=== PATIENT | female | born 1995 | race Caucasian/White ===

== ENCOUNTER 2017-01-14 20:22 | Emergency (ER) | payer SELFPAY ==
[2017-01-14] MEDS ORDERED: BABY ASPIRIN 81 MG CHEW PO ONE (20:41)
[2017-01-14] MEDS ORDERED: Sodium Chloride 0.9% 1000 ML 1,000 ML IV SCH (20:45)
[2017-01-14 20:50] LABS: BASOPHIL % 0.3 % (0.0-0.4); Eosinophil % 2.6 % (0.00-5.0); Granulocytes % 46.7 % (36.0-66.0); Lymphocytes % 44.8 % (24.0-44.0); Mean Cell Volume 79.9 fl (78-100); Mean Corpuscular Hemoglobin 26.2 pg (26-32); Mean Platelet Volume 10.6 fl (6-9.5); Monocytes % 5.6 % (0.0-12.0); Platelet Count 219 K/mm3 (150-450); Red Blood Count 5.03 M/mm3 (4.1-5.4); Red Cell Distribution Width 21.4 % (11.5-14.0); White Blood Count 6.5 K/mm3 (4.0-10.5)
[2017-01-14] MEDS ORDERED: BABY ASPIRIN 81 MG CHEW ONE (20:51)
[2017-01-14] MEDS ORDERED: Sodium Chloride 0.9% 1000 ML 1,000 ML ONE (20:51)
[2017-01-14 20:58] LABS: INR 1.09 (0.8-3.0); PROTIME 12.2 SECONDS (9.95-12.35)
[2017-01-14 21:06] LABS: ALBUMIN 4.1 g/dL (3.4-5.0); ALKALINE PHOSPHATASE 49 U/L (46-116); BILIRUBIN,TOTAL 0.7 mg/dL (0.2-1.0); BLOOD UREA NITROGEN 10 mg/dL (9-20); CHLORIDE 107 mEq/L (98-107); Carbon Dioxide 25.4 mEq/L (21-32); Glucose 86 MG/DL (70-110); Potassium 3.8 mEq/L (3.5-5.1); SGOT/AST 18 U/L (15-37); SGPT/ALT 14 U/L (12-78); SODIUM 143 mEq/L (136-145); Total Protein 7.3 gm/dL (6.4-8.2)
[2017-01-14] MEDS ORDERED: TORAdol 30 mg Injection IV ONE (21:54)
[2017-01-14 21:58] VITALS: O2SAT 98
[2017-01-14] MEDS ORDERED: TORAdol 30 mg Injection ONE (22:02)
[2017-01-14] MEDS ORDERED: Sodium Chloride 0.9% 1000 ML 1,000 ML IV STA (22:09)
[2017-01-14] MEDS ORDERED: Zithromax 250 MG TABLET PO ONE (22:17)
[2017-01-14] MEDS ORDERED: Tylenol #3 Tablet PO ONE (22:18)
[2017-01-14] MEDS ORDERED: Zithromax 250 MG TABLET ONE (22:21)
[2017-01-14] MEDS ORDERED: Tylenol #3 Tablet ONE (22:21)
--- NOTE | 2017-01-14 22:38 | ERPHSYRPT ---
- History of Present Illness Time Seen by Provider: 01/14/17 20:40 Historian: patient Exam Limitations: clinical condition Patient Subjective Stated Complaint: PT REPORTS CHEST PAIN BEGINNING EARLY THIS AFTERNOON-STATES THAT PAIN HAS NOT CHANGED-DENIES SOB-DENEIS RECENT COUGH- DENIES DIAPHOESIS Triage Nursing Assessment: PT PINK WARM ET [id number] ALL QUESTIONS CORRECTLY-RESP EASY ET NONLABORED-ABLE TO SPEAK IN COMPLETE SENTCES WITH EASE- RIGHT RADIAL PULSE REGUARL ET STRONG Physician History: PATIENT COMPLAINS OF ANTERIOR CHEST PAINS SHARP IN CHARACTER, EXACERBATED UPON INSPIRATION AND MOTION OF TORSO. DENIES RADIATION OF PAIN, DYSPNEA, DIAPHORESIS OR PALPITATIONS. HAS PRODUCTIVE COUGH YELLOW SPUTUM. Timing/Duration: today Activities at Onset: none Quality: sharpness, stabbing Location: substernal Chest Pain Radiation: no radiation Severity of Pain-Max: moderate Severity of Pain-Current: moderate Modifying Factors: Improves With: change in position Associated Symptoms: hurts to breathe Prior Chest Pain/Cardiac Workup: no prior chest pain Nitro Today/Relief: 0.4 mg x 1, provided by ED Aspirin Treatment Today: 81 mg x 4, provided by ED Allergies/Adverse Reactions: No Known Drug Allergies Allergy (Unverified 01/14/17 20:36) Home Medications: Iron 18 mg PO DAILY 01/14/17 [History] Hx Tetanus, Diphtheria Vaccination/Date Given: Yes Hx Influenza Vaccination/Date Given: No Hx Pneumococcal Vaccination/Date Given: No Immunizations Up to Date: Yes - Review of Systems Constitutional: No Fever, No Chills Eyes: No Symptoms Ears, Nose, & Throat: No Symptoms Respiratory: No Symptoms, Cough, No Dyspnea Cardiac: Chest Pain, No Edema, No Syncope Abdominal/Gastrointestinal: No Symptoms, No Abdominal Pain, No Nausea, No Vomiting, No Diarrhea Genitourinary Symptoms: No Symptoms, No Dysuria Musculoskeletal: No Symptoms, No Back Pain, No Neck Pain Skin: No Symptoms, No Rash Neurological: No Symptoms, No Dizziness, No Focal Weakness, No Sensory Changes Psychological: No Symptoms Endocrine: No Symptoms All Other Systems: Reviewed and Negative - Past Medical History Pertinent Past Medical History: No - Past Surgical History Past Surgical History: No - Social History Smoking Status: Current every day smoker How long have you smoked: YRS Exposure to second hand smoke: Yes Drug Use: none Patient Lives Alone: No - Female History Hx Last Menstrual Period: 2 WKS AGO - Nursing Vital Signs Temperature: 98.2 F Temperature Source: Oral Pulse Rate: 74 Respiratory Rate: 14 Pain Intensity: 4 - Physical Exam General Appearance: no apparent distress, alert Eye Exam: PERRL/EOMI, eyes nml inspection Ears, Nose, Throat Exam: normal ENT inspection, moist mucous membranes Neck Exam: normal inspection, non-tender, supple, full range of motion Respiratory Exam: normal breath sounds, chest tenderness (PARASTERNAL CHEST WALL TENDERNESS T-2 TO T-5), lungs clear, No respiratory distress Cardiovascular Exam: regular rate/rhythm, normal heart sounds Gastrointestinal/Abdomen Exam: soft, No tenderness, No mass Back Exam: normal inspection, No CVA tenderness, No vertebral tenderness Extremity Exam: normal inspection, normal range of motion Neurologic Exam: alert, oriented x 3, cooperative, normal mood/affect, sensation nml, No motor deficits Skin Exam: normal color, warm, dry SpO2 Interpretation: normal SpO2: 98 Oxygen Delivery: Nasal Cannula - Course EKG Interpreted by Me: RATE, Sinus Rhythm, Sinus Todd, Right Caret Deviation - Radiology Exams Chest X-ray Interpretation: Interpreted by me, Negative, No Infiltrates Ordered Tests: Active Orders 24 hr Category Date Time Status Sales Promotion Coordinator STAT Care 01/14/17 20:41 Active EKG-ER Only STAT Care 01/14/17 20:41 Active IV Insertion STAT Care 01/14/17 20:41 Active Oxygen-ED Only NASAL CANNULA 2 lpm Care 01/14/17 20:41 Active CHEST 1 VIEW (PORTABLE) Stat Exams 01/14/17 20:42 Taken CBC W DIFF Stat Lab 01/14/17 20:40 Completed CMP Stat Lab 01/14/17 20:40 Completed D-DIMER QUANTITATION Stat Lab 01/14/17 20:40 Completed HCG,QUALITATIVE URINE Stat Lab 01/14/17 21:30 Completed PROTIME WITH INR Stat Lab 01/14/17 20:40 Completed TROPONIN Q3H Lab 01/14/17 20:40 Completed TROPONIN Q3H Lab 01/14/17 23:45 Ordered TROPONIN Q3H Lab 01/15/17 02:45 Ordered TROPONIN Q3H Lab 01/15/17 05:45 Ordered TROPONIN Q3H Lab 01/15/17 08:45 Ordered Urine Triage Profile Stat Lab 01/14/17 21:30 Completed Medication Summary Generic Name Dose Route Start Last Admin Trade Name Freq PRN Reason Stop Dose Admin Sodium Chloride 1,000 mls @ 100 mls/hr 01/14/17 20:45 01/14/17 20:55 Sodium Chloride 0.9% 1000 Ml IV 02/13/17 20:44 100 mls/hr .Q10H SIA Administration Sodium Chloride 1,000 mls @ 999 mls/hr 01/14/17 22:09 01/14/17 21:20 Sodium Chloride 0.9% 1000 Ml IV 01/14/17 23:09 999 mls/hr .Q1H1M STA Administration Discontinued Medications Generic Name Dose Route Start Last Admin Trade Name Joey PRN Reason Stop Dose Admin Acetaminophen/Codeine Phosphate 2 tab 01/14/17 22:18 01/14/17 22:24 Tylenol #3 Tablet PO 01/14/17 22:19 2 tab STAT ONE Administration Acetaminophen/Codeine Phosphate Confirm 01/14/17 22:21 Tylenol #3 Tablet Administered 01/14/17 22:22 Dose 2 tab .ROUTE .STK-MED ONE Aspirin 324 mg 01/14/17 20:41 01/14/17 20:55 Baby Aspirin 81 Mg Chew PO 01/14/17 20:42 324 mg STAT ONE Administration Aspirin Confirm 01/14/17 20:51 Baby Aspirin 81 Mg Chew Administered 01/14/17 20:52 Dose 324 mg .ROUTE .STK-MED ONE Azithromycin 500 mg 01/14/17 22:17 01/14/17 22:24 Zithromax 250 Mg Tablet PO 01/14/17 22:18 500 mg STAT ONE Administration Azithromycin Confirm 01/14/17 22:21 Zithromax 250 Mg Tablet Administered 01/14/17 22:22 Dose 500 mg .ROUTE .STK-MED ONE Ketorolac Tromethamine 30 mg 01/14/17 21:54 01/14/17 22:04 Toradol 30 Mg Injection IV 01/14/17 21:55 30 mg STAT ONE Administration Ketorolac Tromethamine Confirm 01/14/17 22:02 Toradol 30 Mg Injection Administered 01/14/17 22:03 Dose 30 mg .ROUTE .STK-MED ONE Lab/Rad Data: Laboratory Result Diagrams 01/14/17 20:40 01/14/17 20:40 Laboratory Results 01/14/17 01/14/17 01/14/17 Range/Units 21:30 21:30 20:40 WBC (4.0-10.5) K/mm3 RBC (4.1-5.4) M/mm3 Hgb (12.0-16.0) gm/dl Hct (35-47) % MCV (78-100) fl MCH (26-32) pg MCHC (32-36) g/dl RDW (11.5-14.0) % Plt Count (150-450) K/mm3 MPV (6-9.5) fl Gran % (36.0-66.0) % Lymphocytes % (24.0-44.0) % Monocytes % (0.0-12.0) % Eosinophils % (0.00-5.0) % Basophils % (0.0-0.4) % Basophils # (0-0.4) INR (0.8-3.0) D-Dimer (0.00-0.49) mg/L Sodium (136-145) mEq/L Potassium (3.5-5.1) mEq/L Chloride (98-107) mEq/L Carbon Dioxide (21-32) mEq/L Anion Gap (5-15) MEQ/L BUN (9-20) mg/dL Creatinine (0.55-1.30) mg/dl Estimated GFR ML/MIN Glucose (70-110) MG/DL Calcium (8.5-10.1) mg/dL Total Bilirubin (0.2-1.0) mg/dL AST (15-37) U/L ALT (12-78) U/L Alkaline Phosphatase (46-116) U/L Troponin I < 0.017 (0.000-0.056) ng/ml Serum Total Protein (6.4-8.2) gm/dL Albumin (3.4-5.0) g/dL Urine HCG, Qual NEGATIVE (Negative) Urine Opiates Level NEG. (NEGATIVE) Ur Methadone NEG. (NEGATIVE) Urine Barbiturates NEG. (NEGATIVE) Ur Phencyclidine (PCP) NEG. (NEGATIVE) Urine Amphetamine NEG. (NEGATIVE) U Benzodiazepine Level NEG. (NEGATIVE) Urine Cocaine NEG. (NEGATIVE) Urine Marijuana (THC) NEG. (NEGATIVE) 0501/14/17 01/14/17 Range/Units 20:40 20:40 20:40 WBC 6.5 (4.0-10.5) K/mm3 RBC 5.03 (4.1-5.4) M/mm3 Hgb 13.2 (12.0-16.0) gm/dl Hct 40.2 (35-47) % MCV 79.9 (78-100) fl MCH 26.2 (26-32) pg MCHC 32.8 (32-36) g/dl RDW 21.4 H (11.5-14.0) % Plt Count 219 (150-450) K/mm3 MPV 10.6 H (6-9.5) fl Gran % 46.7 (36.0-66.0) % Lymphocytes % 44.8 H (24.0-44.0) % Monocytes % 5.6 (0.0-12.0) % Eosinophils % 2.6 (0.00-5.0) % Basophils % 0.3 (0.0-0.4) % Basophils # 0.02 (0-0.4) INR 1.09 (0.8-3.0) D-Dimer 0.257 (0.00-0.49) mg/L Sodium 143 (136-145) mEq/L Potassium 3.8 (3.5-5.1) mEq/L Chloride 107 (98-107) mEq/L Carbon Dioxide 25.4 (21-32) mEq/L Anion Gap 14.0 (5-15) MEQ/L BUN 10 (9-20) mg/dL Creatinine 0.98 (0.55-1.30) mg/dl Estimated GFR > 60 ML/MIN Glucose 86 (70-110) MG/DL Calcium 9.6 (8.5-10.1) mg/dL Total Bilirubin 0.7 (0.2-1.0) mg/dL AST 18 (15-37) U/L ALT 14 (12-78) U/L Alkaline Phosphatase 49 (46-116) U/L Troponin I (0.000-0.056) ng/ml Serum Total Protein 7.3 (6.4-8.2) gm/dL Albumin 4.1 (3.4-5.0) g/dL Urine HCG, Qual (Negative) Urine Opiates Level (NEGATIVE) Ur Methadone (NEGATIVE) Urine Barbiturates (NEGATIVE) Ur Phencyclidine (PCP) (NEGATIVE) Urine Amphetamine (NEGATIVE) U Benzodiazepine Level (NEGATIVE) Urine Cocaine (NEGATIVE) Urine Marijuana (THC) (NEGATIVE) - Progress Progress: improved Progress Note: 01/14/17 22:22 PATIENT ADMINISTERED BABY ASA X 4, NTG 0.4MG SL, TORADOL 30MG IV, Counseled pt/family regarding: lab results, diagnosis, need for follow-up, rad results - Departure Time of Disposition: 23:00 Departure Disposition: Home Clinical Impression: COSTOCHONDRIS, BRONCHITIS Condition: Stable Critical Care Time: No Referrals: Provider,Unknown [Primary Care Provider] - Additional Instructions: ANTIBIOTIC ZITHROMAX 250MG, 2 TABLETS DAY 1, THEN 1 TABLET DAILY FOR 4 DAYS. FOLLOWUP WITH YOUR CARDIOLOGY CONSULT THIS WEEK. TYLENOL #3 EVERY 4 HOURS FOR PAIN NEEDED. Prescriptions: Codeine Phosphate/APAP #3 [Tylenol #3 Tablet] 1 tab PO Q4HPRN PRN #10 tablet PRN Reason: Pain Azithromycin 250 mg [Zithromax 250 MG TABLET] 250 mg PO ZPACK #6 tablet
[2017-01-14 22:49] VITALS: BP 108/60
[2017-01-14 22:53] VITALS: PULSE 74
--- NOTE | 2017-01-15 09:04 | XRAY ---
Indication: Chest pain. Comparison: None Portable chest demonstrates normal heart, lungs, and bony thorax.
== END 2017-01-14 23:07 | disposition home or self-care (01) ==
LOC: ED 20:22
DX: M94.0 Chondrocostal junction syndrome [Tietze] (principal); J40 Bronchitis, not specified as acute or chronic; R07.89 Other chest pain
CPT/HCPCS: 36000; 36415; 71010; 80053; 80307; 84484; 84703; 85025; 85379; 85610; 93005; 93041; 96360; 96374; 99283; J1885; A9270-GY

== ENCOUNTER 2017-10-16 00:52 | Emergency (ER) | payer OTHER ==
[2017-10-16] MEDS ORDERED: TORAdol 30 mg Injection IM ONE (01:11)
[2017-10-16] MEDS ORDERED: TORAdol 30 mg Injection ONE (01:17)
--- NOTE | 2017-10-16 01:20 | ERPHSYRPT ---
- History of Present Illness Time Seen by Provider: 10/16/17 01:14 Source: patient Exam Limitations: no limitations Patient Subjective Stated Complaint: pt states that while at work, they were moving stock, her lt foot was run over by a pallett. Triage Nursing Assessment: pt alert and oriented, answers questions appop. pt transfer from wheelchair to stretcher per self, nwb to lt leg. respirations nonlabored with lungs cta. bruising noted to lt great toes, tenderness to lt foot. Physician History: This is a 22-year-old white female arrives with complaint of pain in her left foot after running the foot over with a pallet joseph at work at approximately 11: 15 this evening. Patient complains of pain on her left foot both proximally and proximal to her left first second third toes. Past medical history is negative. Patient states that her last menstrual period was March 12 surgery September 12 she states she is on the Depo-Provera shots Social history positive for tobacco use. Method of Injury: other (left foot run over by pallet joseph) Occurred: this evening (11:15 this evening) Quality: aching, throbbing Lower Extremities Pain: foot: left Modifying Factors: Improves With: nothing Associated Symptoms: none Allergies/Adverse Reactions: No Known Drug Allergies Allergy (Verified 10/16/17 01:08) Home Medications: Amoxicillin 500 mg Cap [Amoxil 500 mg] 500 mg PO TID 10/16/17 [History] Hx Tetanus, Diphtheria Vaccination/Date Given: Yes Hx Influenza Vaccination/Date Given: No Hx Pneumococcal Vaccination/Date Given: No Immunizations Up to Date: Yes - Review of Systems Constitutional: No Symptoms Eyes: No Symptoms Ears, Nose, & Throat: No Symptoms Respiratory: No Cough, No Dyspnea Cardiac: No Chest Pain, No Edema, No Syncope Abdominal/Gastrointestinal: No Abdominal Pain, No Nausea, No Vomiting, No Diarrhea Genitourinary Symptoms: No Dysuria Musculoskeletal: Other (left foot pain) Skin: No Rash Neurological: No Dizziness, No Focal Weakness, No Sensory Changes Psychological: No Symptoms Endocrine: No Symptoms All Other Systems: Reviewed and Negative - Past Medical History Pertinent Past Medical History: No - Past Surgical History Past Surgical History: No - Social History Smoking Status: Current every day smoker How long have you smoked: YRS Exposure to second hand smoke: Yes Drug Use: none Patient Lives Alone: No - Female History Hx Last Menstrual Period: sep 12 Hx Now: No - Nursing Vital Signs Nursing Vital Signs: Initial Vital Signs Temperature 98.4 F 10/16/17 00:59 Pulse Rate 78 10/16/17 00:59 Respiratory Rate 18 10/16/17 00:59 Blood Pressure 119/86 10/16/17 00:59 O2 Sat by Pulse Oximetry 98 10/16/17 00:59 Pain Scale Pain Intensity 7 - Physical Exam General Appearance: mild distress Eyes, Ears, Nose, Throat Exam: moist mucous membranes Neck Exam: non-tender, supple Cardiovascular/Respiratory Exam: chest non-tender, normal breath sounds, regular rate/rhythm, no respiratory distress Gastrointestinal/Abdominal Exam: non-tender, guarding Hips Exam: bilateral: non-tender, normal inspection, normal range of motion, no evidence of injury Legs Exam: bilateral leg: non-tender, normal inspection, normal range of motion , no evidence of injury Knees Exam: bilateral knee: non-tender, normal inspection, normal range of motion, no evidence of injury Ankle Exam: bilateral ankle: non-tender, normal inspection, normal range of motion, no evidence of injury Foot Exam: right foot: non-tender, normal inspection, normal range of motion, no evidence of injury, left foot: other (left plate drying machine tender with palpation dorsally, decreased range of motion left toe secondary to pain. Left dorsal pedal posterior tibial pulses intact 2 over 4, good capillary refill all toes sensation intact to all toes) DTR - Lower Extremities Exam: ankle (R): 2+, ankle (L): 2+ Neuro/Tendon Exam: normal sensation, normal motor functions Mental Status Exam: alert, oriented x 3, cooperative Skin Exam: normal color, warm, dry SpO2 Interpretation: normal (98%) SpO2: 98 Oxygen Delivery: Room Air - Course Nursing assessment & vital signs reviewed: Yes - Radiology Exams Left Foot X-ray Interpretation: Interpreted by me, Negative, No Fracture, No Subluxation Ordered Tests: Active Orders 24 hr Category Date Time Status Fred Bandage Application -[facility] STAT Care 10/16/17 01:48 Active Crutches STAT Care 10/16/17 01:51 Active Splint STAT Care 10/16/17 01:48 Active FOOT (MINIMUM 3 VIEWS) Stat Exams 10/16/17 01:11 Taken Medication Summary Discontinued Medications Generic Name Dose Route Start Last Admin Trade Name Joey PRN Reason Stop Dose Admin Ketorolac Tromethamine 60 mg 10/16/17 01:11 10/16/17 01:18 Toradol 30 Mg Injection IM 10/16/17 01:12 60 mg STAT ONE Administration Ketorolac Tromethamine Confirm 10/16/17 01:17 Toradol 30 Mg Injection Administered 10/16/17 01:18 Dose 60 mg .ROUTE .STK-MED ONE - Progress Progress: improved Progress Note: 10/16/17 01:51 This is a 22-year-old female she arrives with complaint of pain in her left foot after it was run over was a pallet joseph at work. Patient complains of pain in the dorsal foot. Patient has good capillary refill to all left toes dorsal pedal posterior tibial pulses are intact sensation is intact to the left toes. X-ray of the left foot no fracture no dislocation (my read). Patient states her foot is quite tender she has not walked since the injury Will go ahead and have the nurses apply Fred wrap to the left foot also will place patient on crutches weightbearing as tolerated patient has received Toradol 60 mg IM will write for Naprosyn 500 mg orally twice a day with food as needed for pain #20 patient is to ice and elevate her foot 24-48 hours crutches weightbearing as tolerated. Patient will need to follow-up with her company physician. . - Departure Time of Disposition: 01:53 Departure Disposition: Home Clinical Impression: Left foot pain Crush injury of left foot Qualifiers: Encounter type: initial encounter Qualified Code(s): S97.82XA - Crushing injury of left foot, initial encounter Condition: Fair Critical Care Time: No Referrals: SEBASTIAN WHATLEY DIRECTOR COMMUNICATIONS [Primary Care Provider] - Additional Instructions: Return home. Ice and elevate your left foot 24-48 hours. Crutches weightbearing as tolerated. Naprosyn 500 mg orally twice a day with food as needed for pain #20. Follow-up with your company physician call tomorrow to schedule an appointment. Return for acute distress or for severe symptoms. Prescriptions: Naproxen 500 mg [Naprosyn 500 MG] 500 mg PO BID #20 tablet
[2017-10-16 03:06] VITALS: BP 105/69; PULSE 83; O2SAT 99
--- NOTE | 2017-10-16 09:10 | XRAY ---
Indication: Pain following injury. Comparison: None 3 nonweightbearing views of the left foot demonstrates mild first MTP bunion deformity. No other bony, articular, or soft tissue abnormalities.
== END 2017-10-16 02:25 | disposition home or self-care (01) ==
LOC: ED 00:52
DX: S97.82XA Crushing injury of left foot, initial encounter (principal); M79.672 Pain in left foot; W31.89XA Contact with other specified machinery, initial encounter; Y92.89 Other specified places as the place of occurrence of the external cause; Y99.0 Civilian activity done for income or pay
CPT/HCPCS: 73630; 80307; 96372; 99283; 99284; J1885

== ENCOUNTER 2018-02-14 06:19 | Emergency (ER) | payer OTHER ==
[2018-02-14] MEDS ORDERED: NORCO 5/325 MG PO ONE (06:45)
[2018-02-14] MEDS ORDERED: CLEOCIN 150 MG CAPSULE PO ONE (06:46)
[2018-02-14] MEDS ORDERED: CLEOCIN 150 MG CAPSULE ONE (06:48)
[2018-02-14] MEDS ORDERED: NORCO 5/325 MG ONE (06:49)
--- NOTE | 2018-02-14 06:52 | ERPHSYRPT ---
- History of Present Illness Time Seen by Provider: 02/14/18 06:42 Source: patient Exam Limitations: no limitations Patient Subjective Stated Complaint: pt states she has a tooth that has been getting increasingly painful. Triage Nursing Assessment: pt alert and oriented, answers questions approp. pt ambulatory with steady gait noted. respirations nonlabored with lungs cta. skin pink warm and dry. dental caries noted to tooth lt lower mouth. Physician History: This is a 22-year-old female. She arrives with complaint of pain in her left mandibular area symptoms since 2:00 this morning. Patient states she has a carious tooth which is becoming increasingly painful. Past medical history is negative. Past surgical history is negative. Social history patient denies illicit drug use. She denies alcohol use. She admits to tobacco use. Timing/Duration: today (2 AM) Severity: moderate Modifying Factors: Improves With: nothing Associated Symptoms: No nausea, No vomiting, No abdominal pain, No shortness of breath, No heartburn, No diaphoresis, No cough, No chills, No chest pain, No fever, No headaches, No loss of appetite, No malaise, No rash, No syncope, No seizure, No weakness Allergies/Adverse Reactions: No Known Drug Allergies Allergy (Verified 02/14/18 06:34) Hx Tetanus, Diphtheria Vaccination/Date Given: Yes Hx Influenza Vaccination/Date Given: No Hx Pneumococcal Vaccination/Date Given: No Immunizations Up to Date: Yes - Review of Systems Constitutional: No Fever, No Chills Eyes: No Symptoms Ears, Nose, & Throat: Other (pain in tooth left mandibular area), No Ear Pain, No Ear Discharge, No Hearing Changes, No Tinnitus, No Nose Pain, No Nose Congestion, No Nose Discharge, No Sinus Drainage, No Epistaxis, No Mouth Pain, No Mouth Swelling, No Loose Teeth, No Throat Pain, No Throat Swelling, No Hoarse , No Painful Swallowing, No Snoring, No Stridor Respiratory: No Cough, No Dyspnea Cardiac: No Chest Pain, No Edema, No Syncope Abdominal/Gastrointestinal: No Abdominal Pain, No Nausea, No Vomiting, No Diarrhea Genitourinary Symptoms: No Dysuria Musculoskeletal: No Back Pain, No Neck Pain Skin: No Rash Neurological: No Dizziness, No Focal Weakness, No Sensory Changes Psychological: No Symptoms Endocrine: No Symptoms All Other Systems: Reviewed and Negative - Past Medical History Pertinent Past Medical History: No - Past Surgical History Past Surgical History: No - Social History Smoking Status: Current every day smoker How long have you smoked: YRS Exposure to second hand smoke: Yes Drug Use: none Patient Lives Alone: No - Female History Hx Last Menstrual Period: october- Hx Now: No - Nursing Vital Signs Nursing Vital Signs: Initial Vital Signs Temperature 98.5 F 02/14/18 06:24 Pulse Rate 74 02/14/18 06:24 Respiratory Rate 18 02/14/18 06:24 Blood Pressure 127/65 02/14/18 06:24 O2 Sat by Pulse Oximetry 100 02/14/18 06:24 Pain Scale Pain Intensity 7 - Physical Exam General Appearance: mild distress Eye Exam: PERRL/EOMI, eyes nml inspection Ears, Nose, Throat Exam: TMs normal, pharynx normal, moist mucous membranes, other (dental caries. Tooth left mandibular area . Tenderness in the face adjacent to this tooth), No dry mucous membranes, No TM abnormal (R), No TM abnormal (L), No pharyngeal erythema, No tonsillar exudate Neck Exam: normal inspection, non-tender, supple, full range of motion Respiratory Exam: normal breath sounds, lungs clear, No respiratory distress Cardiovascular Exam: regular rate/rhythm, normal heart sounds, normal peripheral pulses Gastrointestinal/Abdomen Exam: soft, normal bowel sounds, No tenderness, No mass Back Exam: normal inspection, normal range of motion, No CVA tenderness, No vertebral tenderness Extremity Exam: normal inspection, normal range of motion, pelvis stable Neurologic Exam: alert, oriented x 3, cooperative, inflated ball molder II-XII nml as tested, normal mood/affect, nml cerebellar function, nml station & gait, sensation nml, No motor deficits Skin Exam: normal color, warm, dry, No rash SpO2 Interpretation: normal (100%) SpO2: 100 - Course Nursing assessment & vital signs reviewed: Yes Ordered Tests: Medication Summary Discontinued Medications Generic Name Dose Route Start Last Admin Trade Name Freq PRN Reason Stop Dose Admin Hydrocodone Bitart/Acetaminophen 1 tab 02/14/18 06:45 02/14/18 06:50 Sterling 5/325 Mg PO 02/14/18 06:46 1 tab STAT ONE Administration Hydrocodone Bitart/Acetaminophen Confirm 02/14/18 06:49 Sterling 5/325 Mg Administered 02/14/18 06:50 Dose 1 tab .ROUTE .STK-MED ONE Clindamycin HCl 300 mg 02/14/18 06:46 02/14/18 06:50 Cleocin 150 Mg Capsule PO 02/14/18 06:47 300 mg STAT ONE Administration Clindamycin HCl Confirm 02/14/18 06:48 Cleocin 150 Mg Capsule Administered 02/14/18 06:49 Dose 300 mg .ROUTE .STK-MED ONE - Progress Progress: improved Progress Note: 02/14/18 06:50 This is a 22-year-old female arrives with complaint of pain in the left anterior lateral mandibular tooth symptoms since 2 AM. Patient with obvious dental caries in the area. Inspect report has been checked. There does not appear to be any recent narcotic use. Patient denies any problems with narcotics or illicit substances. Will go ahead and place patient on clindamycin Sterling. Patient will be advised to quit smoking also, she has been advised to follow-up with a dentist. - Departure Time of Disposition: 06:52 Departure Disposition: Home Clinical Impression: Pain due to dental caries Condition: Fair Critical Care Time: No Referrals: SEBASTIAN WHATLEY, SPECIALTY SALES REPRESENTATIVE [Primary Care Provider] - Additional Instructions: Return home. Cold packs to area (external) 24-48 hours. Sterling as prescribed. May also take Advil 2-3 tablets orally every 6 hours as needed for pain, up to 5 days. Clindamycin as prescribed. Avoid excessively hot or cold foods. Follow-up with your dentist. Return for acute distress or for severe symptoms. Prescriptions: Clindamycin HCl 300 mg PO TID #30 capsule Hydrocodone/Acetaminophen [Sterling 5-325 Tablet] 1 tab PO Q4-6HPRN PRN #10 tablet MDD 6 tablets PRN Reason: Pain
[2018-02-14 07:10] VITALS: BP 115/64; PULSE 65; O2SAT 99
== END 2018-02-14 07:09 | disposition home or self-care (01) ==
LOC: ED 06:19
DX: K02.9 Dental caries, unspecified (principal)
CPT/HCPCS: 99283; A9270-GY

== ENCOUNTER 2018-03-13 01:40 | Emergency (ER) | payer OTHER ==
[2018-03-13 01:56] VITALS: BP 111/56; PULSE 56; O2SAT 100
--- NOTE | 2018-03-13 02:05 | ERPHSYRPT ---
- History of Present Illness Time Seen by Provider: 03/13/18 02:03 Source: patient Exam Limitations: no limitations Patient Subjective Stated Complaint: pt c/o left knee pain for approx 2 weeks; denies any injury to area; has been wearing a knee brace for approx 1 week but knee is no better. Triage Nursing Assessment: pt a&o x3; skin p, w, & d; ambulated to room per self ; family at bedside; no obvious deformity noted to knee. Physician History: pt c/o left knee pain for approx 2 weeks; denies any injury to area; has been wearing a knee brace for approx 1 week but knee is no better. Lower Extremities Pain: knee: left Allergies/Adverse Reactions: No Known Drug Allergies Allergy (Verified 03/13/18 01:55) Home Medications: Penicillin V Potassium 500 mg PO QID 03/13/18 [History] Hx Tetanus, Diphtheria Vaccination/Date Given: No Hx Influenza Vaccination/Date Given: No Hx Pneumococcal Vaccination/Date Given: Yes Immunizations Up to Date: No - Review of Systems Constitutional: No Symptoms Musculoskeletal: Joint Pain (left knee), No Deformity, No Fall - Past Medical History Pertinent Past Medical History: No - Past Surgical History Past Surgical History: No - Social History Smoking Status: Current every day smoker How long have you smoked: 1 Exposure to second hand smoke: No Drug Use: none Patient Lives Alone: No - Female History Hx Last Menstrual Period: depo shot Hx Now: No - Nursing Vital Signs Nursing Vital Signs: Initial Vital Signs Temperature 98 F 03/13/18 01:46 Pulse Rate 56 L 03/13/18 01:46 Respiratory Rate 16 03/13/18 01:46 Blood Pressure 111/56 03/13/18 01:46 O2 Sat by Pulse Oximetry 100 03/13/18 01:46 Pain Scale Pain Intensity 8 - Physical Exam General Appearance: no apparent distress Hips Exam: bilateral: non-tender Legs Exam: bilateral leg: non-tender Knees Exam: left knee: soft tissue tenderness Ankle Exam: bilateral ankle: non-tender SpO2: 100 Oxygen Delivery: Room Air - Course Nursing assessment & vital signs reviewed: Yes - Radiology Exams Knee X-ray Interpretation: Reviewed by me, Negative, No Fracture, No Subluxation Ordered Tests: Active Orders 24 hr Category Date Time Status KNEE (3 VIEWS) Stat Exams 03/13/18 02:02 Taken - Progress Progress: unchanged Counseled pt/family regarding: diagnosis, need for follow-up, rad results - Departure Time of Disposition: 02:24 Departure Disposition: Home Clinical Impression: Left anterior knee pain Condition: Stable Critical Care Time: No Referrals: SEBASTIAN WHATLEY, MESS COOK [Primary Care Provider] - Instructions: Contusion (DC) Additional Instructions: RENETTA TEMPLE was seen on 03/13/18 n the Emergency Room. At that time you were treated for an emergent condition, during your visit Laboratory, Radiology and/or other procedures may have been ordered. It is very important that you follow-up with your Primary Care Physician SEBASTIAN WHATLEY within the next 24-48 hours to review your Emergency Room visit and the final results of testing that was ordered. Some test results such as Urine Cultures, Blood Cultures, and other cultures if ordered will not be finalized for 24-48 hours. If you do not have a Primary Care Provider please call the medical records department at [phone] to obtain a copy of your results or you may sign into our patient portal to obtain these results by visiting us @ [email or web address] and completing the following steps: 1. Click on the Patient Portal link 2. Click the Patient Self Enrollment Link to complete the enrollment form and entering your 3. Once the enrollment form is completed you will receive an email with a temporary ID and password at the email address you provided. 4. Next choose a user name and password. Your user name must be at least 4 characters long and your password must be at least 4 characters long. 5. Choose a security question from the list and provide your answer to the question. If you already have signed into the Health Portal you may access your Health Care Information 23/03 by the following steps: 1. Login to our website @ [email or web address] 2. Enter your original user name and password. FAQS The [facility] Health Portal is an online tool that contains your Lab Results, Radiology Reports, Visit History, Discharge Instructions and Health Summary Lab and Radiology Results will not be available for 72 hours on the portal. The Portal is a secure site, passwords are encryted and URLs are re-written so they cannot be copied and pasted. You and authorized family members are the only ones who can access your Portal. Also there is a timeout feature that protects your information if you leave the Portal page open. If you have technical difficulty please use the Contact Us link on the page this will allow you to submit any questions you have regarding the Portal or you may contact the Medical Record Department at [phone]. Prescriptions: Naproxen 375 mg [Naprosyn 375 mg] 375 mg PO Q8H #30 tablet
--- NOTE | 2018-03-13 06:04 | XRAY ---
Indication: Pain following twisting injury 2 weeks ago. Comparison: None 3 views of the left knee demonstrates minimal medial joint space narrowing. No other bony, articular, or soft tissue abnormalities.
== END 2018-03-13 03:05 | disposition home or self-care (01) ==
LOC: ED 01:40
DX: M25.562 Pain in left knee (principal)
CPT/HCPCS: 73562; 99283

== ENCOUNTER 2018-03-31 01:03 | Emergency (ER) | payer OTHER ==
[2018-03-31 01:22] VITALS: BP 128/85; O2SAT 100
[2018-03-31] MEDS ORDERED: Pepcid 20 MG VIAL IV ONE ×2 (01:31→01:40)
[2018-03-31] MEDS ORDERED: GI COCKTAIL 45 ML (Maalox/Lidocaine) PO ONE (01:31)
[2018-03-31] MEDS ORDERED: Zofran 4 MG/2 ML VIAL IV ONE (01:31)
[2018-03-31] MEDS ORDERED: Sodium Chloride 0.9% 1000 ML 1,000 ML IV STA (01:31)
--- NOTE | 2018-03-31 01:31 | ERPHSYRPT ---
- History of Present Illness Time Seen by Provider: 03/31/18 01:22 Historian: patient, family Exam Limitations: no limitations Patient Subjective Stated Complaint: stomach ahmadi/hurts in upper left quadrant Triage Nursing Assessment: Pt c/o of pain in the left upper quadrant of abdomen , states that it ahmadi and sometimes has a dull pain, off and on for the past 2 weeks, vitals are wnl, states that abdomen starts hurting approx 1 hour after eating food, denies N&V, doesn't appear to be in any distress Physician History: The patient is a 22-year-old female with a friend complaining of epigastric and left upper quadrant abdominal pain that began 2 weeks ago. She describes the pain as a burning pain. The pain is intermittent. It begins about an hour after she eats. Clinic goes away. Tonight the pain was more intense than usual and she wanted to come in to find out what was going on. She has tried Tums and Pepto-Bismol without relief. She had diarrhea 3 days ago that lasted one day. She denies nausea or vomiting. Her past medical history is unremarkable. Timing/Duration: week(s) (2), intermittent, sudden, improved Activities at Onset: other (eating) Quality: burning Abdominal Pain Onset Location: LUQ, epigastric Pain Radiation: no radiation Severity of Pain-Max: severe Severity of Pain-Current: mild Modifying Factors: Improves With: eating Associated Symptoms: denies symptoms Previous symptoms: same symptoms as today, no recent treatment Allergies/Adverse Reactions: No Known Drug Allergies Allergy (Verified 03/31/18 01:22) Hx Tetanus, Diphtheria Vaccination/Date Given: No Hx Influenza Vaccination/Date Given: No Hx Pneumococcal Vaccination/Date Given: Yes - Review of Systems Constitutional: No Fever, No Chills Eyes: No Symptoms Ears, Nose, & Throat: No Symptoms Respiratory: No Cough, No Dyspnea Cardiac: No Chest Pain, No Edema, No Syncope Abdominal/Gastrointestinal: Abdominal Pain Genitourinary Symptoms: No Dysuria Musculoskeletal: No Back Pain, No Neck Pain Skin: No Rash Neurological: No Dizziness, No Focal Weakness, No Sensory Changes Psychological: No Symptoms Endocrine: No Symptoms Hematologic/Lymphatic: No Symptoms Immunological/Allergic: No Symptoms All Other Systems: Reviewed and Negative - Past Medical History Pertinent Past Medical History: No - Past Surgical History Past Surgical History: No - Social History Smoking Status: Current every day smoker How long have you smoked: 1 Exposure to second hand smoke: No Drug Use: none Patient Lives Alone: No - Female History Hx Now: No (Depo) - Nursing Vital Signs Nursing Vital Signs: Initial Vital Signs Temperature 98.6 F 03/31/18 01:09 Pulse Rate 79 03/31/18 01:09 Blood Pressure 128/85 03/31/18 01:09 O2 Sat by Pulse Oximetry 100 03/31/18 01:09 Pain Scale Pain Intensity 5 - Physical Exam General Appearance: no apparent distress, alert Eye Exam: PERRL/EOMI, eyes nml inspection Ears, Nose, Throat Exam: normal ENT inspection, pharynx normal, moist mucous membranes Neck Exam: normal inspection, non-tender, supple, full range of motion Respiratory Exam: normal breath sounds, lungs clear, No respiratory distress Cardiovascular Exam: regular rate/rhythm, normal heart sounds Gastrointestinal/Abdomen Exam: tenderness (epigastric and LUQ) Pelvic Exam: not done Rectal Exam: not done Back Exam: normal inspection, normal range of motion, No CVA tenderness, No vertebral tenderness Extremity Exam: normal inspection, normal range of motion, pelvis stable Neurologic Exam: alert, oriented x 3, cooperative, normal mood/affect, nml cerebellar function, sensation nml, No motor deficits Skin Exam: normal color, warm, dry SpO2 Interpretation: normal SpO2: 100 Oxygen Delivery: Room Air - Radiology Exams Abdomen X-ray Interpretation: Interpreted by me, Negative Ordered Tests: Active Orders 24 hr Category Date Time Status Clean Catch Urine Specimen STAT Care 03/31/18 01:31 Active IV Insertion STAT Care 03/31/18 01:31 Active KUB Stat Exams 03/31/18 01:32 Taken CBC W DIFF Stat Lab 03/31/18 01:35 Completed CMP Stat Lab 03/31/18 01:35 Completed HCG QUALITATIVE,SERUM Stat Lab 03/31/18 01:35 Completed LIPASE Stat Lab 03/31/18 01:35 Completed UA W/RFX UR CULTURE Stat Lab 03/31/18 01:47 Completed Medication Summary Generic Name Dose Route Start Last Admin Trade Name Freq PRN Reason Stop Dose Admin Sodium Chloride 1,000 mls @ 999 mls/hr 03/31/18 01:31 03/31/18 01:51 Sodium Chloride 0.9% 1000 Ml IV 03/31/18 02:31 999 mls/hr .Q1H1M STA Administration Discontinued Medications Generic Name Dose Route Start Last Admin Trade Name Joey PRN Reason Stop Dose Admin Al Hydrox/Mg Hydrox/Simethicone Confirm 03/31/18 01:41 Maalox Es 30 Ml Unit Dose Administered 03/31/18 01:42 Dose 30 ml .ROUTE .STK-MED ONE Famotidine 20 mg 03/31/18 01:31 03/31/18 01:51 Pepcid 20 Mg Vial IV 03/31/18 01:32 20 mg STAT ONE Administration Famotidine Confirm 03/31/18 01:40 Pepcid 20 Mg Vial Administered 03/31/18 01:41 Dose 20 mg IV .STK-MED ONE Sodium Chloride Confirm 03/31/18 01:41 Sodium Chloride 0.9% 1000 Ml Administered 03/31/18 01:42 Dose 1,000 mls @ ud .ROUTE .STK-MED ONE Lidocaine HCl Confirm 03/31/18 01:41 Xylocaine Hcl Viscous * Administered 03/31/18 01:42 Dose 15 ml .ROUTE .STK-MED ONE Magnesium Hydroxide 45 ml 03/31/18 01:31 03/31/18 01:51 Gi Cocktail 45 Ml (Maalox/Lidocaine) PO 03/31/18 01:32 45 ml STAT ONE Administration Ondansetron HCl 4 mg 03/31/18 01:31 03/31/18 01:51 Zofran 4 Mg/2 Ml Vial IV 03/31/18 01:32 4 mg STAT ONE Administration Ondansetron HCl Confirm 03/31/18 01:40 Zofran 4 Mg/2 Ml Vial Administered 03/31/18 01:41 Dose 4 mg .ROUTE .STK-MED ONE Lab/Rad Data: Laboratory Result Diagrams 03/31/18 01:35 03/31/18 01:35 Laboratory Results 03/31/18 03/31/18 03/31/18 Range/Units 01:47 01:35 01:35 WBC (4.0-10.5) K/mm3 RBC (4.1-5.4) M/mm3 Hgb (12.0-16.0) gm/dl Hct (35-47) % MCV (78-100) fl MCH (26-32) pg MCHC (32-36) g/dl RDW (11.5-14.0) % Plt Count (150-450) K/mm3 MPV (6-9.5) fl Gran % (36.0-66.0) % Eos # (Auto) (0-0.5) Absolute Lymphs (auto) (1.0-4.6) Absolute Monos (auto) (0.0-1.3) Lymphocytes % (24.0-44.0) % Monocytes % (0.0-12.0) % Eosinophils % (0.00-5.0) % Basophils % (0.0-0.4) % Absolute Granulocytes (1.4-6.9) Basophils # (0-0.4) Sodium 142 (137-145) mmol/L Potassium 3.5 (3.5-5.1) mmol/L Chloride 107 (98-107) mmol/L Carbon Dioxide 24 (22-30) mmol/L Anion Gap 14.8 (5-15) MEQ/L BUN 15 (7-17) mg/dL Creatinine 0.87 (0.52-1.04) mg/dL Estimated GFR > 60.0 ML/MIN Glucose 94 (74-106) mg/dL Calcium 9.8 (8.4-10.2) mg/dL Total Bilirubin 0.30 (0.2-1.3) mg/dL AST 16 (14-36) U/L ALT 8 (0-35) U/L Alkaline Phosphatase 46 (38-126) U/L Serum Total Protein 7.5 (6.3-8.2) g/dL Albumin 4.8 (3.5-5.0) g/dL Lipase 102 (23-300) U/L Serum , Qual NEGATIVE (Negative) Ur Collection Type VOID Urine Color YELLOW (YELLOW) Urine Appearance SLIGHTLY CLOUDY (CLEAR) Urine pH 5.0 (5-6) Ur Specific [place] 1.025 (1.005-1.025) Urine Protein NEGATIVE (Negative) Urine Ketones NEGATIVE (NEGATIVE) Urine Blood NEGATIVE (0-5) Omer/ul Urine Nitrite NEGATIVE (NEGATIVE) Urine Bilirubin NEGATIVE (NEGATIVE) Urine Urobilinogen NORMAL (0-1) mg/dL Ur Leukocyte Esterase NEGATIVE (NEGATIVE) Urine Culture Reflexed NO (NO) Urine Glucose NEGATIVE (NEGATIVE) mg/dL Specimen Received 8/1/18 0150 03/31/18 Range/Units 01:35 WBC 5.6 (4.0-10.5) K/mm3 RBC 4.17 (4.1-5.4) M/mm3 Hgb 12.7 (12.0-16.0) gm/dl Hct 37.7 (35-47) % MCV 90.4 (78-100) fl MCH 30.5 (26-32) pg MCHC 33.7 (32-36) g/dl RDW 12.4 (11.5-14.0) % Plt Count 213 (150-450) K/mm3 MPV 10.5 H (6-9.5) fl Gran % 40.8 (36.0-66.0) % Eos # (Auto) 0.19 (0-0.5) Absolute Lymphs (auto) 2.80 (1.0-4.6) Absolute Monos (auto) 0.34 (0.0-1.3) Lymphocytes % 49.6 H (24.0-44.0) % Monocytes % 6.0 (0.0-12.0) % Eosinophils % 3.4 (0.00-5.0) % Basophils % 0.2 (0.0-0.4) % Absolute Granulocytes 2.30 (1.4-6.9) Basophils # 0.01 (0-0.4) Sodium (137-145) mmol/L Potassium (3.5-5.1) mmol/L Chloride (98-107) mmol/L Carbon Dioxide (22-30) mmol/L Anion Gap (5-15) MEQ/L BUN (7-17) mg/dL Creatinine (0.52-1.04) mg/dL Estimated GFR ML/MIN Glucose (74-106) mg/dL Calcium (8.4-10.2) mg/dL Total Bilirubin (0.2-1.3) mg/dL AST (14-36) U/L ALT (0-35) U/L Alkaline Phosphatase (38-126) U/L Serum Total Protein (6.3-8.2) g/dL Albumin (3.5-5.0) g/dL Lipase (23-300) U/L Serum , Qual (Negative) Ur Collection Type Urine Color (YELLOW) Urine Appearance (CLEAR) Urine pH (5-6) Ur Specific [place] (1.005-1.025) Urine Protein (Negative) Urine Ketones (NEGATIVE) Urine Blood (0-5) Omer/ul Urine Nitrite (NEGATIVE) Urine Bilirubin (NEGATIVE) Urine Urobilinogen (0-1) mg/dL Ur Leukocyte Esterase (NEGATIVE) Urine Culture Reflexed (NO) Urine Glucose (NEGATIVE) mg/dL Specimen Received - Progress Progress: unchanged Counseled pt/family regarding: lab results, diagnosis, need for follow-up, rad results - Departure Time of Disposition: 02:16 Departure Disposition: Home Clinical Impression: Abdominal pain Condition: Stable Critical Care Time: No Referrals: SEBASTIAN WHATLEY NP [Primary Care Provider] - Additional Instructions: You have abdominal pain that is aggravated by eating. You were given Pepcid 20 mg and fluids by IV in the ER. You're also given a GI cocktail. Take omeprazole 20 mg daily. Follow-up with your primary medical doctor later this week. Prescriptions: Omeprazole 20 MG [Prilosec 20 mg] 20 mg PO DAILY #7 capsule.
[2018-03-31 01:38] LABS: BASOPHIL % 0.2 % (0.0-0.4); Basophil (Absolute #) 0.01 (0-0.4); Eosinophil % 3.4 % (0.00-5.0); Eosinophil (Absolute #) 0.19 (0-0.5); Granulocytes % 40.8 % (36.0-66.0); Hematocrit 37.7 % (35-47); Hemoglobin 12.7 gm/dl (12.0-16.0); Lymphocytes % 49.6 % (24.0-44.0); Mean Cell Volume 90.4 fl (78-100); Mean Corpuscular Hemoglobin 30.5 pg (26-32); Mean Corpuscular Hgb Concent. 33.7 g/dl (32-36); Mean Platelet Volume 10.5 fl (6-9.5); Monocyte (Absolute #) 0.34 (0.0-1.3); Platelet Count 213 K/mm3 (150-450); Red Blood Count 4.17 M/mm3 (4.1-5.4); Red Cell Distribution Width 12.4 % (11.5-14.0); White Blood Count 5.6 K/mm3 (4.0-10.5)
[2018-03-31] MEDS ORDERED: Zofran 4 MG/2 ML VIAL ONE (01:40)
[2018-03-31] MEDS ORDERED: XYLOCAINE HCl Viscous ONE (01:41)
[2018-03-31] MEDS ORDERED: MAALOX ES 30 ML UNIT DOSE ONE (01:41)
[2018-03-31] MEDS ORDERED: Sodium Chloride 0.9% 1000 ML 1,000 ML ONE (01:41)
[2018-03-31 01:51] LABS: Appearance SLIGHTLY CLOUDY (CLEAR); Bilirubin NEGATIVE (NEGATIVE); Blood NEGATIVE Ery/ul (0-5); Glucose NEGATIVE (NEGATIVE); Ketones NEGATIVE (NEGATIVE); Leukocyte Esterase NEGATIVE (NEGATIVE); Nitrite NEGATIVE (NEGATIVE); Protein,Urine Dip NEGATIVE (Negative); Specific Gravity 1.025 (1.005-1.025); Urobilinogen NORMAL mg/dL (0-1)
[2018-03-31 01:59] LABS: ALBUMIN 4.8 g/dL (3.5-5.0); ALKALINE PHOSPHATASE 46 U/L (38-126); ANION GAP 14.8 MEQ/L (5-15); BLOOD UREA NITROGEN 15 mg/dL (7-17); CHLORIDE 107 mmol/L (98-107); Calcium 9.8 mg/dL (8.4-10.2); Carbon Dioxide 24 mmol/L (22-30); Creatinine 1 0.87 mg/dL (0.52-1.04); Glucose 94 mg/dL (74-106); LIPASE 102 U/L (23-300); Potassium 3.5 mmol/L (3.5-5.1); SGOT/AST 16 U/L (14-36); SGPT/ALT 8 U/L (0-35); SODIUM 142 mmol/L (137-145); Total Protein 7.5 g/dL (6.3-8.2)
[2018-03-31 02:23] VITALS: PULSE 55
--- NOTE | 2018-03-31 14:43 | XRAY ---
Exam: Abdomen film from 03/31/2018. Comparison: None. Indication: Midline to left lower quadrant abdominal pain 2 weeks, associated with some nausea. Findings: The bowel gas pattern appears unremarkable. There is a mild amount of scattered stool throughout the colon. No findings to suggest bowel obstruction or significant ileus are seen. The stomach is mildly distended with air. No hepatosplenomegaly is seen. No suspicious abdominal calcifications are seen. The psoas muscle margins appear unremarkable. The visualized bones appear unremarkable. Impression: 1. Unremarkable bowel gas pattern with a mild amount of scattered stool throughout the colon.
== END 2018-03-31 02:37 | disposition home or self-care (01) ==
LOC: ED 01:03
DX: R10.12 Left upper quadrant pain (principal); R10.13 Epigastric pain
CPT/HCPCS: 36000; 36415; 74018; 80053; 81002; 83690; 84703; 85025; 96374; 96375; 99284; J2405; A9270-GY

== ENCOUNTER 2018-04-14 01:01 | Emergency (ER) | payer OTHER ==
[2018-04-14 01:15] VITALS: O2SAT 100
[2018-04-14] MEDS ORDERED: Sodium Chloride 0.9% 1000 ML 1,000 ML IV STA (01:24)
[2018-04-14] MEDS ORDERED: BENADRYL 50 MG/ML IV ONE (01:24)
[2018-04-14] MEDS ORDERED: Sodium Chloride 0.9% 1000 ML 1,000 ML ONE (01:27)
[2018-04-14] MEDS ORDERED: BENADRYL 50 MG/ML ONE ×2 (01:27→01:29)
--- NOTE | 2018-04-14 01:27 | ERPHSYRPT ---
- History of Present Illness Time Seen by Provider: 04/14/18 01:19 Source: patient Exam Limitations: no limitations Patient Subjective Stated Complaint: States took PCN with VK around 1300 and developed itching, rash, swollen tongue and hoarse voice aroudn 0015 Triage Nursing Assessment: see above Physician History: This is a 22-year-old female arrives with complaint of diffuse itching symptoms since 11:00 tonight. She states that she had recently started penicillin took the last pill at 1:00 this afternoon and she began to have itching at 11:00 tonight she is not short of breath she does feel like her tongue was swollen. Past medical history patient denies, ' Past surgical history negative. Last menstrual period Depo-Provera. Timing/Duration: today Severity: mild Modifying Factors: Improves With: nothing Associated Symptoms: other (patient with itching after taking penicillin yesterday morning at 11), No nausea, No vomiting, No abdominal pain, No shortness of breath, No heartburn, No diaphoresis, No cough, No chills, No chest pain, No fever, No headaches, No loss of appetite, No malaise Allergies/Adverse Reactions: penicillin V Allergy (Verified 04/14/18 01:15) Hives Home Medications: Medroxyprogesterone Acetate [Depo-Provera] 150 mg IM 04/14/18 [History] Hx Tetanus, Diphtheria Vaccination/Date Given: No Hx Influenza Vaccination/Date Given: No Hx Pneumococcal Vaccination/Date Given: Yes - Review of Systems Constitutional: No Fever, No Chills Eyes: No Symptoms Ears, Nose, & Throat: No Symptoms Respiratory: No Cough, No Dyspnea Cardiac: No Chest Pain, No Edema, No Syncope Abdominal/Gastrointestinal: No Abdominal Pain, No Nausea, No Vomiting, No Diarrhea Genitourinary Symptoms: No Dysuria Musculoskeletal: No Back Pain, No Neck Pain Skin: Pruritis, No Rash Neurological: No Dizziness, No Focal Weakness, No Sensory Changes Psychological: No Symptoms Endocrine: No Symptoms All Other Systems: Reviewed and Negative - Past Medical History Pertinent Past Medical History: No - Past Surgical History Past Surgical History: No - Social History Smoking Status: Current every day smoker How long have you smoked: 1 Exposure to second hand smoke: Yes Drug Use: none Patient Lives Alone: No - Female History Hx Now: No - Nursing Vital Signs Nursing Vital Signs: Initial Vital Signs Temperature 98.4 F 04/14/18 01:05 Pulse Rate 77 04/14/18 01:05 Respiratory Rate 18 04/14/18 01:05 Blood Pressure 124/76 04/14/18 01:05 O2 Sat by Pulse Oximetry 100 04/14/18 01:05 Pain Scale Pain Intensity 6 - Physical Exam General Appearance: no apparent distress (pain be difficult), alert Eye Exam: PERRL/EOMI, eyes nml inspection Ears, Nose, Throat Exam: normal ENT inspection, TMs normal, pharynx normal, moist mucous membranes Neck Exam: normal inspection, non-tender, supple, full range of motion Respiratory Exam: normal breath sounds, lungs clear, No respiratory distress Cardiovascular Exam: regular rate/rhythm, normal heart sounds, normal peripheral pulses Gastrointestinal/Abdomen Exam: soft, normal bowel sounds, No tenderness, No mass Back Exam: normal inspection, normal range of motion, No CVA tenderness, No vertebral tenderness Extremity Exam: normal inspection, normal range of motion, pelvis stable Neurologic Exam: alert, oriented x 3, cooperative, slitter operator II-XII nml as tested, normal mood/affect, nml cerebellar function, nml station & gait, sensation nml, No motor deficits Skin Exam: normal color, warm, dry, No rash Lymphatic Exam: No adenopathy SpO2 Interpretation: normal (100%) SpO2: 100 Oxygen Delivery: Room Air - Course Nursing assessment & vital signs reviewed: Yes Ordered Tests: Active Orders 24 hr Category Date Time Status IV Insertion STAT Care 04/14/18 01:24 Active Medication Summary Discontinued Medications Generic Name Dose Route Start Last Admin Trade Name Joey PRN Reason Stop Dose Admin Diphenhydramine HCl 25 mg 04/14/18 01:24 04/14/18 01:41 Benadryl 50 Mg/Ml IV 04/14/18 01:25 25 mg STAT ONE Administration Diphenhydramine HCl Confirm 04/14/18 01:27 Benadryl 50 Mg/Ml Administered 04/14/18 01:28 Dose 50 mg .ROUTE .STK-MED ONE Diphenhydramine HCl Confirm 04/14/18 01:29 Benadryl 50 Mg/Ml Administered 04/14/18 01:30 Dose 50 mg .ROUTE .STK-MED ONE Sodium Chloride 1,000 mls @ 999 mls/hr 08/15/18 01:24 04/14/18 01:41 Sodium Chloride 0.9% 1000 Ml IV 04/14/18 02:24 999 mls/hr .Q1H1M STA Administration Sodium Chloride Confirm 04/14/18 01:27 Sodium Chloride 0.9% 1000 Ml Administered 04/14/18 01:28 Dose 1,000 mls @ ud .ROUTE .STK-MED ONE - Progress Progress: improved Progress Note: 04/14/18 02:27 Patient feeling better after Benadryl 25 mg IV and IV normal saline. I really don't see a rash but her pruritus is gone. No signs of airway swelling lungs are clear. Will give patient Solu-Medrol 125 IV plan home Benadryl 50 mg orally every 6 hours for the next 2-3 days. Patient is to follow-up with her dentist tomorrow to inquire as to which antibiotic she like her to be on. Will write for prednisone taper - Departure Time of Disposition: 02:28 Departure Disposition: Home Clinical Impression: Pruritus Allergic reaction Qualifiers: Encounter type: initial encounter Qualified Code(s): T78.40XA - Allergy, unspecified, initial encounter Condition: Fair Critical Care Time: No Referrals: SEBASTIAN WHATLEY DERMATOLOGY TEACHER [Primary Care Provider] - Additional Instructions: Return home. Plenty of fluids. Benadryl 50 mg orally every 6 hours for 2-3 days hold for somnolence. Prednisone as directed. Stop penicillin. Contact your dentist tomorrow. Return for acute distress or for severe symptoms.
[2018-04-14] MEDS ORDERED: solu-MEDROL 125 MG IV ONE (02:49)
[2018-04-14 02:50] VITALS: BP 119/71; PULSE 54
[2018-04-14] MEDS ORDERED: solu-MEDROL 125 MG ONE (02:50)
== END 2018-04-14 03:04 | disposition home or self-care (01) ==
LOC: ED 01:01
DX: L29.9 Pruritus, unspecified (principal); T78.40XA Allergy, unspecified, initial encounter
CPT/HCPCS: 36000; 96360; 96374; 96375; 96376; 99284; J1200; J2930

== ENCOUNTER 2018-05-11 01:06 | Emergency (ER) | payer OTHER ==
[2018-05-11 01:19] VITALS: BP 118/74; PULSE 97; O2SAT 100
[2018-05-11] MEDS ORDERED: MOTRIN 400 MG PO ONE (01:36)
[2018-05-11] MEDS ORDERED: MOTRIN 400 MG ONE (01:38)
--- NOTE | 2018-05-11 01:42 | ERPHSYRPT ---
- History of Present Illness Time Seen by Provider: 05/11/18 01:31 Source: patient Exam Limitations: no limitations Patient Subjective Stated Complaint: Pt arrives to ER with c/o left knee pain stating sprained it months ago and since Thursday states was moving too fast and twisted her knee and it hurts ago. 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 She complains of pain in the left knee both anterior medially laterally and posteriorly worse with walking. Denies any other complaints. Past medical history is negative. Past surgical history includes wisdom teeth removed. Patient last period was in August she is on Depo-Provera injections last injection May 04, 2018. Method of Injury: twisted Occurred: days ago (4 days ago) Quality: aching Lower Extremities Pain: knee: left Modifying Factors: Improves With: other (walking) Associated Symptoms: none Allergies/Adverse Reactions: penicillin V Allergy (Verified 05/11/18 01:19) Hives Home Medications: Medroxyprogesterone Acetate [Depo-Provera] 150 mg IM 04/14/18 [History] Hx Tetanus, Diphtheria Vaccination/Date Given: No Hx Influenza Vaccination/Date Given: No Hx Pneumococcal Vaccination/Date Given: Yes - Review of Systems Constitutional: No Fever, No Chills Eyes: No Symptoms Ears, Nose, & Throat: No Symptoms Respiratory: No Cough, No Dyspnea Cardiac: No Chest Pain, No Edema, No Syncope Abdominal/Gastrointestinal: No Abdominal Pain, No Nausea, No Vomiting, No Diarrhea Genitourinary Symptoms: No Dysuria Musculoskeletal: Joint Pain (left knee pain) Skin: No Rash Neurological: No Dizziness, No Focal Weakness, No Sensory Changes Psychological: No Symptoms Endocrine: No Symptoms All Other Systems: Reviewed and Negative - Past Medical History Pertinent Past Medical History: Yes - Past Surgical History Past Surgical History: No Other Surgical History: dental surgery - Social History Smoking Status: Current every day smoker How long have you smoked: 1 Exposure to second hand smoke: Yes Drug Use: none Patient Lives Alone: No - Female History Hx Now: No - Nursing Vital Signs Nursing Vital Signs: Initial Vital Signs Temperature 97.9 F 05/11/18 01:10 Pulse Rate 97 H 05/11/18 01:10 Respiratory Rate 18 05/11/18 01:10 Blood Pressure 118/74 05/11/18 01:10 O2 Sat by Pulse Oximetry 100 05/11/18 01:10 Pain Scale Pain Intensity 8 - Physical Exam General Appearance: alert Eyes, Ears, Nose, Throat Exam: moist mucous membranes Neck Exam: non-tender, supple Cardiovascular/Respiratory Exam: chest non-tender, normal breath sounds, regular rate/rhythm, no respiratory distress Gastrointestinal/Abdominal Exam: non-tender, guarding Back Exam: normal inspection, No vertebral tenderness Hips Exam: bilateral: non-tender, normal inspection, normal range of motion, no evidence of injury Legs Exam: bilateral leg: non-tender, normal inspection, normal range of motion , no evidence of injury Knees Exam: right knee: non-tender, normal inspection, no evidence of injury, left knee: other (left knee tender with palpation anteriorly, medially and laterally. Left knee stable to anterior drawer, posterior drawer, medial collateral ligament stress, lateral collateral ligament stress), bilateral knee : normal range of motion Ankle Exam: bilateral ankle: non-tender, normal inspection, normal range of motion, no evidence of injury Foot Exam: bilateral foot: non-tender, normal inspection, normal range of motion , no evidence of injury DTR - Lower Extremities Exam: ankle (R): 2+, ankle (L): 2+ Neuro/Tendon Exam: normal sensation, normal motor functions Mental Status Exam: alert, oriented x 3, cooperative Skin Exam: normal color, warm, dry SpO2 Interpretation: normal (100%) SpO2: 100 Oxygen Delivery: Room Air - Course Nursing assessment & vital signs reviewed: Yes - Radiology Exams Left Knee X-ray Interpretation: Interpreted by me, Negative, No Fracture, No Subluxation Ordered Tests: Active Orders 24 hr Category Date Time Status Immobilizer STAT Care 05/11/18 02:03 Active KNEE (3 VIEWS) Stat Exams 05/11/18 01:36 Taken Medication Summary Discontinued Medications Generic Name Dose Route Start Last Admin Trade Name Freq PRN Reason Stop Dose Admin Ibuprofen 400 mg 05/11/18 01:36 05/11/18 01:39 Motrin 400 Mg PO 05/11/18 01:37 400 mg STAT ONE Administration Ibuprofen Confirm 05/11/18 01:38 Motrin 400 Mg Administered 05/11/18 01:39 Dose 400 mg .ROUTE .STK-MED ONE - Progress Progress: improved Progress Note: 05/11/18 01:41 22-year-old white female arrives with complaint of pain in her left knee symptoms for 4 days she states she twisted her left knee at work 4 days ago. She describes the pain as being in the anterior posterior lateral and medial knee worse with walking. On physical examination patient with the tenderness anteriorly some medially and laterally with palpation. Left knee is stable to anterior drawer, posterior drawer, medial collateral ligament stress, lateral collateral ligament stress. Will obtain an x-ray of the left knee 05/11/18 02:03 X-ray the patient's left knee negative fracture negative subluxation. Will go ahead and have the nurses place left knee immobilizer. Will have patient continue Motrin at home every 6 hours. Cold packs to the left knee 24-[address] patient on limited standing and walking for 48 hours. Patient will need to follow-up with her company physician. - Departure Time of Disposition: 02:04 Departure Disposition: Home Clinical Impression: Strain of left knee Qualifiers: Encounter type: initial encounter Qualified Code(s): S86.912A - Strain of unspecified muscle(s) and tendon(s) at lower leg level, left leg, initial encounter Condition: Fair Critical Care Time: No Referrals: SEBASTIAN WHATLEY [employer]LECTOR [Primary Care Provider] - Instructions: Knee Sprain (DC) Additional Instructions: Return home. Cold packs to the left knee 24-48 hours. Continue Motrin every 6 hours as needed for pain. Limited standing and walking at work. 48 hours. Follow-up with your company . Return for acute distress or for severe symptoms.
--- NOTE | 2018-05-11 08:41 | XRAY ---
Indication: Pain following twisting injury 4 days ago. Comparison: March 13, 2018. 3 views of the left knee unchanged again demonstrating minimal medial joint space narrowing. No new/acute bony, articular, or soft tissue abnormalities.
== END 2018-05-11 02:15 | disposition home or self-care (01) ==
LOC: ED 01:06
DX: S86.912A Strain of unspecified muscle(s) and tendon(s) at lower leg level, left leg, initial encounter (principal); M25.562 Pain in left knee; X50.1XXA Overexertion from prolonged static or awkward postures, initial encounter; Y93.89 Activity, other specified; Y92.89 Other specified places as the place of occurrence of the external cause; Y99.0 Civilian activity done for income or pay
CPT/HCPCS: 73562; 99283; L1830; A9270-GY

== ENCOUNTER 2018-08-14 21:56 | Emergency (ER) | payer OTHER ==
[2018-08-14 22:38] VITALS: O2SAT 99
[2018-08-14] MEDS ORDERED: Sodium Chloride 0.9% 1000 ML 1,000 ML IV STA (22:39)
[2018-08-14] MEDS ORDERED: Hydromorphone 1 mg/ml Ampule IV ONE (22:39)
[2018-08-14] MEDS ORDERED: Zofran 4 MG/2 ML VIAL IV ONE (22:39)
--- NOTE | 2018-08-14 22:41 | ERPHSYRPT ---
- History of Present Illness Time Seen by Provider: 08/14/18 22:35 Historian: patient Exam Limitations: clinical condition Patient Subjective Stated Complaint: pt reports abd pain for 3 days, reports diarrhea and fever as well. pt states she has decreased appetite. pt denies any urinary symptoms. Triage Nursing Assessment: pt is aox3, pupils perrl, afebrile, resps easy and non labored, radial pulses strong and equal, abd is soft and tender with palpation to the right lower quadrant, pain radiates to the right flank, skin is pink warm dry. Physician History: PATIENT COMPLAINS OF RIGHT UPPER ABDOMINAL PAIN FOR 3-4 DAYS ASSOCIATED WITH NAUSEA, RADIATES TO HER BACK. DENIES EMESIS, FEVER, URINARY SYMPTOMS OR DIARRHEA. Timing/Duration: day(s) Activities at Onset: none Quality: sharpness, stabbing Abdominal Pain Onset Location: RUQ, epigastric Pain Radiation: chest Severity of Pain-Max: moderate Severity of Pain-Current: moderate Modifying Factors: Improves With: eating Associated Symptoms: heartburn, nausea Previous symptoms: same symptoms as today Allergies/Adverse Reactions: penicillin V Allergy (Verified 08/14/18 22:38) Hives Home Medications: Medroxyprogesterone Acetate [Depo-Provera] 150 mg IM UD 04/14/18 [History] Escitalopram Oxalate 10 mg PO DAILY 08/14/18 [History] Hx Tetanus, Diphtheria Vaccination/Date Given: Yes Hx Influenza Vaccination/Date Given: No Hx Pneumococcal Vaccination/Date Given: No Immunizations Up to Date: Yes - Review of Systems Constitutional: No Fever, No Chills Eyes: No Symptoms Ears, Nose, & Throat: No Symptoms Respiratory: No Symptoms, No Cough, No Dyspnea Cardiac: No Symptoms, No Chest Pain, No Edema, No Syncope Abdominal/Gastrointestinal: Abdominal Pain, Nausea, No Vomiting, No Diarrhea Genitourinary Symptoms: No Symptoms, No Dysuria Musculoskeletal: No Symptoms, No Back Pain, No Neck Pain Skin: No Rash Neurological: No Dizziness, No Focal Weakness, No Sensory Changes Psychological: No Symptoms Endocrine: No Symptoms All Other Systems: Reviewed and Negative - Past Medical History Pertinent Past Medical History: Yes Psycho-Social History: Depression - Past Surgical History Past Surgical History: Yes Other Surgical History: wisdom teeth - Social History Smoking Status: Current every day smoker How long have you smoked: 1 Exposure to second hand smoke: Yes Drug Use: none Patient Lives Alone: No - Female History Hx Last Menstrual Period: 08/2016 depot shot Hx Now: No - Nursing Vital Signs Nursing Vital Signs: Initial Vital Signs Temperature 98.6 F 08/14/18 22:25 Pulse Rate 77 08/14/18 22:25 Respiratory Rate 18 08/14/18 22:25 Blood Pressure 125/90 08/14/18 22:25 O2 Sat by Pulse Oximetry 99 08/14/18 22:25 Pain Scale Pain Intensity 8 - Physical Exam General Appearance: moderate distress Eye Exam: PERRL/EOMI, eyes nml inspection Ears, Nose, Throat Exam: normal ENT inspection, pharynx normal, moist mucous membranes Neck Exam: normal inspection, non-tender, supple, full range of motion Respiratory Exam: normal breath sounds, lungs clear, No respiratory distress Cardiovascular Exam: regular rate/rhythm, normal heart sounds Gastrointestinal/Abdomen Exam: soft, normal bowel sounds, tenderness (RIGHT UPPER QUADRANT TENDERNESS) Back Exam: normal inspection, CVA tenderness (RIGHT) Extremity Exam: normal inspection Neurologic Exam: alert, oriented x 3 Skin Exam: cyanosis Lymphatic Exam: adenopathy SpO2 Interpretation: normal SpO2: 99 Oxygen Delivery: Room Air - CT Exams Abdomen/Pelvis CT Interpretation: Tele-radiologist Report (THERE IS DEPENDENT SLUDGE IN THE GALLBLADDER. NO ADJACENT STRANDING, NO DISTINCT RADIOPAQUE STONES, NORMAL APPENDIX) Ordered Tests: Active Orders 24 hr Category Date Time Status Clean Catch Urine Specimen STAT Care 08/14/18 22:39 Active IV Insertion STAT Care 08/14/18 22:39 Active ABDOMEN AND PELVIS W/0 CONTRAS [CT] Stat Exams 08/14/18 22:39 Taken AMYLASE Stat Lab 08/14/18 23:00 Completed BLOOD CULTURE Stat Lab 08/14/18 23:10 Received CBC W DIFF Stat Lab 08/14/18 23:00 Completed CMP Stat Lab 08/14/18 23:00 Completed HCG,QUALITATIVE URINE Stat Lab 08/14/18 23:00 Completed LIPASE Stat Lab 08/14/18 23:00 Completed UA W/RFX UR CULTURE Stat Lab 08/14/18 23:00 Completed Medication Summary Discontinued Medications Generic Name Dose Route Start Last Admin Trade Name Freq PRN Reason Stop Dose Admin Hydrocodone Bitart/Acetaminophen 2 tab 08/15/18 01:31 08/15/18 01:59 Shanks 10/325 Mg Tablet PO 08/15/18 01:32 2 tab SENT HOME W/ PATIENT ONE Administration Hydromorphone HCl 1 mg 08/14/18 22:39 08/14/18 22:56 Hydromorphone 1 Mg/Ml Ampule IV 08/14/18 22:40 1 mg STAT ONE Administration Hydromorphone HCl Confirm 08/14/18 22:47 Hydromorphone 1 Mg/Ml Ampule Administered 08/14/18 22:48 Dose 1 mg .ROUTE .STK-MED ONE Sodium Chloride 1,000 mls @ 999 mls/hr 08/14/18 22:39 08/14/18 22:57 Sodium Chloride 0.9% 1000 Ml IV 08/14/18 23:39 999 mls/hr .Q1H1M STA Administration Sodium Chloride Confirm 08/14/18 22:48 Sodium Chloride 0.9% 1000 Ml Administered 08/14/18 22:49 Dose 1,000 mls @ ud .ROUTE .STK-MED ONE Ketorolac Tromethamine 30 mg 08/15/18 00:38 08/15/18 00:54 Toradol 30 Mg Injection IV 08/15/18 00:39 30 mg STAT ONE Administration Ketorolac Tromethamine Confirm 08/15/18 00:53 Toradol 30 Mg Injection Administered 08/15/18 00:54 Dose 30 mg .ROUTE .STK-MED ONE Morphine Sulfate 4 mg 08/15/18 01:30 08/15/18 01:44 Morphine Sulfate 4 Mg Inj IV 08/15/18 01:31 4 mg STAT ONE Administration Morphine Sulfate Confirm 08/15/18 01:41 Morphine Sulfate 4 Mg Inj Administered 08/15/18 01:42 Dose 4 mg .ROUTE .STK-MED ONE Ondansetron HCl 4 mg 08/14/18 22:39 08/14/18 22:56 Zofran 4 Mg/2 Ml Vial IV 08/14/18 22:40 4 mg STAT ONE Administration Ondansetron HCl Confirm 08/14/18 22:47 Zofran 4 Mg/2 Ml Vial Administered 08/14/18 22:48 Dose 4 mg .ROUTE .STK-MED ONE Lab/Rad Data: Laboratory Result Diagrams 08/14/18 23:00 08/14/18 23:00 Laboratory Results 08/14/18 08/14/18 08/14/18 Range/Units 23:00 23:00 23:00 WBC (4.0-10.5) K/mm3 RBC (4.1-5.4) M/mm3 Hgb (12.0-16.0) gm/dl Hct (35-47) % MCV (78-100) fl MCH (26-32) pg MCHC (32-36) g/dl RDW (11.5-14.0) % Plt Count (150-450) K/mm3 MPV (6-9.5) fl Gran % (36.0-66.0) % Eos # (Auto) (0-0.5) Absolute Lymphs (auto) (1.0-4.6) Absolute Monos (auto) (0.0-1.3) Lymphocytes % (24.0-44.0) % Monocytes % (0.0-12.0) % Eosinophils % (0.00-5.0) % Basophils % (0.0-0.4) % Absolute Granulocytes (1.4-6.9) Basophils # (0-0.4) Sodium 142 (137-145) mmol/L Potassium 4.1 (3.5-5.1) mmol/L Chloride 109 H (98-107) mmol/L Carbon Dioxide 25 (22-30) mmol/L Anion Gap 12.6 (5-15) MEQ/L BUN 7 (7-17) mg/dL Creatinine 0.66 (0.52-1.04) mg/dL Estimated GFR > 60.0 ML/MIN Glucose 92 (74-106) mg/dL Calcium 9.5 (8.4-10.2) mg/dL Total Bilirubin 0.30 (0.2-1.3) mg/dL AST 18 (14-36) U/L ALT 9 (0-35) U/L Alkaline Phosphatase 70 (38-126) U/L Serum Total Protein 7.0 (6.3-8.2) g/dL Albumin 4.6 (3.5-5.0) g/dL Amylase 44 (30-110) U/L Lipase 125 (23-300) U/L Urine Color COLORLESS (YELLOW) Urine Appearance CLEAR (CLEAR) Urine pH 7.0 (5-6) Ur Specific Ash 1.005 (1.005-1.025) Urine Protein NEGATIVE (Negative) Urine Ketones NEGATIVE (NEGATIVE) Urine Blood NEGATIVE (0-5) Omer/ul Urine Nitrite NEGATIVE (NEGATIVE) Urine Bilirubin NEGATIVE (NEGATIVE) Urine Urobilinogen NEGATIVE (0-1) mg/dL Ur Leukocyte Esterase NEGATIVE (NEGATIVE) Urine WBC (Auto) NONE (0-5) /HPF Urine RBC (Auto) NONE (0-2) /HPF U Epithel Cells (Auto) NONE (FEW) /HPF Urine Bacteria (Auto) NONE SEEN (NEGATIVE) /HPF Urine Culture Reflexed NO (NO) Urine Glucose NEGATIVE (NEGATIVE) mg/dL Urine HCG, Qual NEGATIVE (Negative) 08/14/18 Range/Units 23:00 WBC 4.9 (4.0-10.5) K/mm3 RBC 4.82 (4.1-5.4) M/mm3 Hgb 14.4 (12.0-16.0) gm/dl Hct 43.8 (35-47) % MCV 90.9 (78-100) fl MCH 29.9 (26-32) pg MCHC 32.9 (32-36) g/dl RDW 13.8 (11.5-14.0) % Plt Count 183 (150-450) K/mm3 MPV 10.8 H (6-9.5) fl Gran % 49.4 (36.0-66.0) % Eos # (Auto) 0.10 (0-0.5) Absolute Lymphs (auto) 1.91 (1.0-4.6) Absolute Monos (auto) 0.47 (0.0-1.3) Lymphocytes % 38.8 (24.0-44.0) % Monocytes % 9.6 (0.0-12.0) % Eosinophils % 2.0 (0.00-5.0) % Basophils % 0.2 (0.0-0.4) % Absolute Granulocytes 2.43 (1.4-6.9) Basophils # 0.01 (0-0.4) Sodium (137-145) mmol/L Potassium (3.5-5.1) mmol/L Chloride (98-107) mmol/L Carbon Dioxide (22-30) mmol/L Anion Gap (5-15) MEQ/L BUN (7-17) mg/dL Creatinine (0.52-1.04) mg/dL Estimated GFR ML/MIN Glucose (74-106) mg/dL Calcium (8.4-10.2) mg/dL Total Bilirubin (0.2-1.3) mg/dL AST (14-36) U/L ALT (0-35) U/L Alkaline Phosphatase (38-126) U/L Serum Total Protein (6.3-8.2) g/dL Albumin (3.5-5.0) g/dL Amylase (30-110) U/L Lipase (23-300) U/L Urine Color (YELLOW) Urine Appearance (CLEAR) Urine pH (5-6) Ur Specific Ash (1.005-1.025) Urine Protein (Negative) Urine Ketones (NEGATIVE) Urine Blood (0-5) Omer/ul Urine Nitrite (NEGATIVE) Urine Bilirubin (NEGATIVE) Urine Urobilinogen (0-1) mg/dL Ur Leukocyte Esterase (NEGATIVE) Urine WBC (Auto) (0-5) /HPF Urine RBC (Auto) (0-2) /HPF U Epithel Cells (Auto) (FEW) /HPF Urine Bacteria (Auto) (NEGATIVE) /HPF Urine Culture Reflexed (NO) Urine Glucose (NEGATIVE) mg/dL Urine HCG, Qual (Negative) - Progress Progress: improved Progress Note: 08/15/18 01:28 IV NORMAL SALINE 1 LITER BOLUS, ZOFRAN 4MG, DILAUDID 1MG, FOLLOWED BY TORADOL 30MG AND MORPHINE 4MG IV Counseled pt/family regarding: lab results, diagnosis, need for follow-up - Departure Time of Disposition: 02:07 Departure Disposition: Home Clinical Impression: ACUTE BILARY COLIC, CHOLELITHIASIS Condition: Stable Critical Care Time: No Referrals: SEBASTIAN WHATLEY NP [Primary Care Provider] - Additional Instructions: FOLLOWUP WITH YOUR PRIMARY CARE PROVIDER FOR REFERRAL TO GENERAL SURGEON. ZOFRAN 4MG EVERY 6 HOURS FOR NAUSEA. NORCO 10/325 EVERY 6 HOURS FOR PAIN. RETURN TO EMERGENCY ROOM FOR INCREASING PAIN. Prescriptions: Hydrocodone/APAP 10/325 mg [Shanks 10/325 MG Tablet] 1 tab PO Q6H PRN PRN # 10 tablet MDD 4 PRN Reason: Pain Ondansetron ODT 4 MG [Zofran Odt 4 mg] 4 mg PO Q6H PRN PRN #10 tab.rapdis PRN Reason: Nausea
[2018-08-14] MEDS ORDERED: Hydromorphone 1 mg/ml Ampule ONE (22:47)
[2018-08-14] MEDS ORDERED: Zofran 4 MG/2 ML VIAL ONE (22:47)
[2018-08-14] MEDS ORDERED: Sodium Chloride 0.9% 1000 ML 1,000 ML ONE (22:48)
[2018-08-14 23:13] LABS: BASOPHIL % 0.2 % (0.0-0.4); Basophil (Absolute #) 0.01 (0-0.4); Granulocyte Absolute (ANC) 2.43 (1.4-6.9); Granulocytes % 49.4 % (36.0-66.0); Hematocrit 43.8 % (35-47); Hemoglobin 14.4 gm/dl (12.0-16.0); Lymphocyte (Absolute #) 1.91 (1.0-4.6); Lymphocytes % 38.8 % (24.0-44.0); Mean Cell Volume 90.9 fl (78-100); Mean Corpuscular Hemoglobin 29.9 pg (26-32); Mean Corpuscular Hgb Concent. 32.9 g/dl (32-36); Mean Platelet Volume 10.8 fl (6-9.5); Monocyte (Absolute #) 0.47 (0.0-1.3); Monocytes % 9.6 % (0.0-12.0); Platelet Count 183 K/mm3 (150-450); Red Blood Count 4.82 M/mm3 (4.1-5.4); Red Cell Distribution Width 13.8 % (11.5-14.0); White Blood Count 4.9 K/mm3 (4.0-10.5)
[2018-08-14 23:16] LABS: Appearance CLEAR (CLEAR); Bilirubin NEGATIVE (NEGATIVE); Blood NEGATIVE Ery/ul (0-5); Glucose NEGATIVE (NEGATIVE); Ketones NEGATIVE (NEGATIVE); Leukocyte Esterase NEGATIVE (NEGATIVE); Nitrite NEGATIVE (NEGATIVE); Protein,Urine Dip NEGATIVE (Negative); Specific Gravity 1.005 (1.005-1.025); Urobilinogen NEGATIVE mg/dL (0-1)
[2018-08-14 23:30] LABS: ALBUMIN 4.6 g/dL (3.5-5.0); ALKALINE PHOSPHATASE 70 U/L (38-126); AMYLASE 44 U/L (30-110); ANION GAP 12.6 MEQ/L (5-15); BLOOD UREA NITROGEN 7 mg/dL (7-17); CHLORIDE 109 mmol/L (98-107); Calcium 9.5 mg/dL (8.4-10.2); Carbon Dioxide 25 mmol/L (22-30); Creatinine 1 0.66 mg/dL (0.52-1.04); Glucose 92 mg/dL (74-106); LIPASE 125 U/L (23-300); Potassium 4.1 mmol/L (3.5-5.1); SGOT/AST 18 U/L (14-36); SGPT/ALT 9 U/L (0-35); SODIUM 142 mmol/L (137-145)
[2018-08-15] MEDS ORDERED: TORAdol 30 mg Injection IV ONE (00:38)
[2018-08-15] MEDS ORDERED: TORAdol 30 mg Injection ONE (00:53)
[2018-08-15 01:15] VITALS: BP 109/73; PULSE 57
[2018-08-15] MEDS ORDERED: MORPHINE SULFATE 4 MG INJ IV ONE (01:30)
[2018-08-15] MEDS ORDERED: Norco 10/325 MG Tablet PO ONE (01:31)
[2018-08-15] MEDS ORDERED: MORPHINE SULFATE 4 MG INJ ONE (01:41)
[2018-08-15] MEDS ORDERED: Norco 10/325 MG Tablet ONE (01:57)
--- NOTE | 2018-08-15 09:36 | XRAY ---
Indication: Right abdomen pain 3 days. Nausea and diarrhea 1 week. Multiple contiguous axial images obtained through the abdomen and pelvis without contrast as ordered. Comparison: None Lung bases are clear. Heart is not enlarged. Stomach distended with food/fluid. Noncontrasted stomach and bowel loops appear nonobstructed. Normal appendix. No free fluid/air. Suspect gallbladder sludge but no gallstones or biliary distention. There are scattered centimeter/subcentimeter mid abdomen mesenteric nodes, possible adenitis. Remaining liver, pancreas, spleen, adrenal glands, kidneys, ureters, bladder, uterus, and aorta appear unremarkable for noncontrast exam. Osseous structures intact. No ventral or inguinal hernias. Impression: 1. Suspect gallbladder sludge. Ultrasound may yield further information if clinically warranted. 2. Scattered small mesenteric nodes, possible adenitis. Comment: Preliminary interpretation was made by [facility]. No discrepancy. CTDI 9.09
== END 2018-08-15 02:23 | disposition home or self-care (01) ==
LOC: ED 21:56
DX: K80.70 Calculus of gallbladder and bile duct without cholecystitis without obstruction (principal); R10.13 Epigastric pain; Z79.899 Other long term (current) drug therapy
CPT/HCPCS: 36000; 36415; 74176; 80053; 81001; 82150; 83690; 84703; 85025; 87040; 96360; 96374; 96375; 99284; J1170; J1885; J2270; J2405; A9270-GY

== ENCOUNTER 2018-08-22 22:24 | Emergency (ER) | payer OTHER ==
[2018-08-22 22:46] VITALS: O2SAT 99
[2018-08-22] MEDS ORDERED: Sodium Chloride 0.9% 1000 ML 1,000 ML IV STA (22:50)
[2018-08-22] MEDS ORDERED: Phenergan 25 MG INJ IV ONE (22:50)
[2018-08-22] MEDS ORDERED: MORPHINE SULFATE 4 MG INJ IV ONE ×2 (22:50→23:54)
--- NOTE | 2018-08-22 22:55 | ERPHSYRPT ---
- History of Present Illness Time Seen by Provider: 08/22/18 22:51 Source: patient Exam Limitations: no limitations Physician History: 23-year-old female who was seen last week secondary to biliary colic who has a known biliary sludge arrives with complaint of pain in her left upper thoracic region pain in her epigastric and upper bilateral abdomen symptoms since 2-3 days. No nausea no vomiting. Patient has been seen here approximately one week ago for gallbladder problems she is scheduled for consult with the surgeon and possible cholecystectomy. Past medical history includes depression, Past surgical history includes wisdom tooth removed Patient states her last period was in August she is on Depo-Provera shots last shot was in July of this year Timing/Duration: day(s) (2 days) Severity: moderate Modifying Factors: Improves With: nothing Associated Symptoms: abdominal pain (epigastric and bilateralupper abdominal pain), other (pain and right back thorasic region), No nausea, No vomiting, No shortness of breath, No heartburn, No diaphoresis, No cough, No chills, No chest pain, No fever, No headaches, No loss of appetite, No malaise, No rash, No syncope, No seizure, No weakness Allergies/Adverse Reactions: penicillin V Allergy (Verified 08/22/18 23:14) Hives Home Medications: Medroxyprogesterone Acetate [Depo-Provera] 150 mg IM UD 04/14/18 [History] Escitalopram Oxalate 10 mg PO DAILY 08/14/18 [History] Hx Tetanus, Diphtheria Vaccination/Date Given: Yes Hx Influenza Vaccination/Date Given: No Hx Pneumococcal Vaccination/Date Given: No - Review of Systems Constitutional: No Fever, No Chills Eyes: No Symptoms Ears, Nose, & Throat: No Symptoms Respiratory: No Cough, No Dyspnea Cardiac: No Chest Pain, No Edema, No Syncope Abdominal/Gastrointestinal: Abdominal Pain, No Nausea, No Vomiting, No Diarrhea , No Constipation, No Hematemesis, No Hematochezia, No Melena, No Dysphagia, No Appetite Changes Genitourinary Symptoms: No Dysuria Musculoskeletal: Back Pain (Pain right back upper thorasic region) Skin: No Rash Neurological: No Symptoms Psychological: No Symptoms Endocrine: No Symptoms All Other Systems: Reviewed and Negative - Past Medical History Pertinent Past Medical History: Yes Psycho-Social History: Depression - Past Surgical History Past Surgical History: Yes Other Surgical History: wisdom teeth - Social History Smoking Status: Current every day smoker How long have you smoked: 1 Exposure to second hand smoke: Yes Drug Use: none Patient Lives Alone: No - Nursing Vital Signs Nursing Vital Signs: Initial Vital Signs Temperature 97.9 F 08/22/18 22:25 Pulse Rate 86 08/22/18 22:25 Respiratory Rate 18 08/22/18 22:25 Blood Pressure 109/73 08/22/18 22:25 O2 Sat by Pulse Oximetry 99 08/22/18 22:25 Pain Scale Pain Intensity 7 - Physical Exam General Appearance: mild distress, alert Eye Exam: PERRL/EOMI, eyes nml inspection Ears, Nose, Throat Exam: normal ENT inspection, TMs normal, pharynx normal, moist mucous membranes Neck Exam: normal inspection, non-tender, supple, full range of motion Respiratory Exam: normal breath sounds, lungs clear, No respiratory distress Cardiovascular Exam: regular rate/rhythm, normal heart sounds, normal peripheral pulses Gastrointestinal/Abdomen Exam: soft, normal bowel sounds, tenderness (Mild right upper quadrant tenderness), No distention, No mass, No guarding, No ecchymosis, No pulsatile mass, No rebound, No hernia, No hepatomegaly, No organomegaly, No splenomegaly Back Exam: normal inspection, normal range of motion, No CVA tenderness, No vertebral tenderness Extremity Exam: normal inspection, normal range of motion, pelvis stable Neurologic Exam: alert, oriented x 3, cooperative, 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, normal mood/affect, nml cerebellar function, nml station & gait, sensation nml, No motor deficits Skin Exam: normal color, warm, dry, No rash Lymphatic Exam: No adenopathy SpO2 Interpretation: normal (99%) SpO2: 99 Oxygen Delivery: Room Air - Course Nursing assessment & vital signs reviewed: Yes EKG Interpreted by Me: RATE (60 bpm), Sinus Rhythm, Other (EKG: Sinus Arrhythmia , 60 bpm,S AXISI/QIII pattern, no acute ST or T wave changes noted.) - Radiology Exams Chest X-ray Interpretation: Interpreted by me (chest x-ray: No acute disease process noted) Ordered Tests: Active Orders 24 hr Category Date Time Status EKG-ER Only STAT Care 08/22/18 22:50 Active IV Insertion STAT Care 08/22/18 22:50 Active CHEST 1 VIEW (PORTABLE) Stat Exams 08/22/18 23:50 Taken AMYLASE Stat Lab 08/22/18 23:15 Completed CBC W DIFF Stat Lab 08/22/18 23:15 Completed CMP Stat Lab 08/22/18 23:15 Completed HCG QUALITATIVE,SERUM Stat Lab 08/22/18 23:15 Completed LIPASE Stat Lab 08/22/18 23:15 Completed Medication Summary Discontinued Medications Generic Name Dose Route Start Last Admin Trade Name Joye PRN Reason Stop Dose Admin Sodium Chloride 1,000 mls @ 999 mls/hr 08/22/18 22:50 08/22/18 23:20 Sodium Chloride 0.9% 1000 Ml IV 08/22/18 23:50 999 mls/hr .Q1H1M STA Administration Sodium Chloride Confirm 08/22/18 23:18 Sodium Chloride 0.9% 1000 Ml Administered 08/22/18 23:19 Dose 1,000 mls @ ud .ROUTE .STK-MED ONE Morphine Sulfate 4 mg 08/22/18 22:50 08/22/18 23:25 Morphine Sulfate 4 Mg Inj IV 08/22/18 22:51 4 mg STAT ONE Administration Morphine Sulfate Confirm 08/22/18 23:18 Morphine Sulfate 4 Mg Inj Administered 08/22/18 23:19 Dose 4 mg .ROUTE .STK-MED ONE Morphine Sulfate 4 mg 08/22/18 23:54 08/23/18 00:24 Morphine Sulfate 4 Mg Inj IV 08/22/18 23:55 4 mg STAT ONE Administration Morphine Sulfate Confirm 08/23/18 00:21 Morphine Sulfate 4 Mg Inj Administered 08/23/18 00:22 Dose 4 mg .ROUTE .STK-MED ONE Promethazine HCl 12.5 mg 08/22/18 22:50 08/22/18 23:22 Phenergan 25 Mg Inj IV 08/22/18 22:51 12.5 mg STAT ONE Administration Promethazine HCl Confirm 08/22/18 23:18 Phenergan 25 Mg Inj Administered 08/22/18 23:19 Dose 25 mg .ROUTE .STK-MED ONE Lab/Rad Data: Laboratory Result Diagrams 08/22/18 23:15 08/22/18 23:15 Laboratory Results 12/23/18 12/23/18 12/23/18 Range/Units 23:15 23:15 23:15 WBC 5.7 (4.0-10.5) K/mm3 RBC 4.66 (4.1-5.4) M/mm3 Hgb 14.3 (12.0-16.0) gm/dl Hct 42.0 (35-47) % MCV 90.1 (78-100) fl MCH 30.7 (26-32) pg MCHC 34.0 (32-36) g/dl RDW 13.5 (11.5-14.0) % Plt Count 218 (150-450) K/mm3 MPV 10.1 H (6-9.5) fl Gran % 53.4 (36.0-66.0) % Eos # (Auto) 0.13 (0-0.5) Absolute Lymphs (auto) 2.10 (1.0-4.6) Absolute Monos (auto) 0.39 (0.0-1.3) Lymphocytes % 37.0 (24.0-44.0) % Monocytes % 6.9 (0.0-12.0) % Eosinophils % 2.3 (0.00-5.0) % Basophils % 0.4 (0.0-0.4) % Absolute Granulocytes 3.03 (1.4-6.9) Basophils # 0.02 (0-0.4) Sodium 138 (137-145) mmol/L Potassium 3.8 (3.5-5.1) mmol/L Chloride 103 (98-107) mmol/L Carbon Dioxide 26 (22-30) mmol/L Anion Gap 13.3 (5-15) MEQ/L BUN 13 (7-17) mg/dL Creatinine 0.94 (0.52-1.04) mg/dL Estimated GFR > 60.0 ML/MIN Glucose 88 (74-106) mg/dL Calcium 9.6 (8.4-10.2) mg/dL Total Bilirubin 0.60 (0.2-1.3) mg/dL AST 22 (14-36) U/L ALT 12 (0-35) U/L Alkaline Phosphatase 60 (38-126) U/L Serum Total Protein 8.0 (6.3-8.2) g/dL Albumin 4.9 (3.5-5.0) g/dL Amylase 71 (30-110) U/L Lipase 151 (23-300) U/L Serum , Qual NEGATIVE (Negative) - Progress Progress: improved Progress Note: 08/23/18 00:26 23-year-old white female with history of known biliary sludge, depression She arrives with complaint of pain in her right back symptoms for 2 days patient is not short of breath pain is described as aching. Patient also with pain in the upper abdomen and epigastric region. Patient was essentially normal EKG chest x-ray is unremarkable patient's CBC CMP amylase lipase are unremarkable. Patient is given 1 L of normal saline total of 8 mg of morphine also given Phenergan IV.. Patient has an appointment with a surgeon. Patient appears to be stable improved after IV fluids and morphine will discharge. 08/23/18 00:31 - Departure Time of Disposition: 00:29 Departure Disposition: Home Clinical Impression: Biliary colic Back pain Qualifiers: Back pain location: thoracic back pain Chronicity: acute Back pain laterality: right Qualified Code(s): M54.6 - Pain in thoracic spine Condition: Fair Critical Care Time: No Referrals: SEBAST[facility] [employer] [employer] [Primary Care Provider] - Additional Instructions: Return home. Plenty of fluids clear fluids only 24-48 hours if abdominal pain nausea or vomiting. Avoid fatty foods or milk. Downing 5/325 #10 one orally every 4-6 hours as needed for pain. Follow-up with your family doctor. Return for acute distress or for severe symptoms.. Prescriptions: Hydrocodone/Acetaminophen [Downing 5-325 Tablet] 1 tab PO Q4-6HPRN PRN #10 tablet MDD 6 tablets PRN Reason: Pain
[2018-08-22 23:12] VITALS: PULSE 70
[2018-08-22] MEDS ORDERED: Sodium Chloride 0.9% 1000 ML 1,000 ML ONE (23:18)
[2018-08-22] MEDS ORDERED: Phenergan 25 MG INJ ONE (23:18)
[2018-08-22] MEDS ORDERED: MORPHINE SULFATE 4 MG INJ ONE (23:18)
[2018-08-22 23:25] LABS: BASOPHIL % 0.4 % (0.0-0.4); Basophil (Absolute #) 0.02 (0-0.4); Eosinophil % 2.3 % (0.00-5.0); Eosinophil (Absolute #) 0.13 (0-0.5); Granulocyte Absolute (ANC) 3.03 (1.4-6.9); Granulocytes % 53.4 % (36.0-66.0); Hemoglobin 14.3 gm/dl (12.0-16.0); Mean Cell Volume 90.1 fl (78-100); Mean Corpuscular Hemoglobin 30.7 pg (26-32); Mean Platelet Volume 10.1 fl (6-9.5); Monocyte (Absolute #) 0.39 (0.0-1.3); Monocytes % 6.9 % (0.0-12.0); Platelet Count 218 K/mm3 (150-450); Red Blood Count 4.66 M/mm3 (4.1-5.4); Red Cell Distribution Width 13.5 % (11.5-14.0); White Blood Count 5.7 K/mm3 (4.0-10.5)
[2018-08-22 23:42] LABS: ALBUMIN 4.9 g/dL (3.5-5.0); ALKALINE PHOSPHATASE 60 U/L (38-126); AMYLASE 71 U/L (30-110); ANION GAP 13.3 MEQ/L (5-15); BLOOD UREA NITROGEN 13 mg/dL (7-17); CHLORIDE 103 mmol/L (98-107); Calcium 9.6 mg/dL (8.4-10.2); Carbon Dioxide 26 mmol/L (22-30); Creatinine 1 0.94 mg/dL (0.52-1.04); Glucose 88 mg/dL (74-106); LIPASE 151 U/L (23-300); Potassium 3.8 mmol/L (3.5-5.1); SGOT/AST 22 U/L (14-36); SGPT/ALT 12 U/L (0-35); SODIUM 138 mmol/L (137-145)
[2018-08-23 00:13] VITALS: BP 103/71
[2018-08-23] MEDS ORDERED: MORPHINE SULFATE 4 MG INJ ONE (00:21)
[2018-08-23] MEDS ORDERED: NORCO 5/325 MG PO ONE (00:31)
[2018-08-23] MEDS ORDERED: NORCO 5/325 MG ONE (00:34)
--- NOTE | 2018-08-23 08:28 | XRAY ---
Indication: Back pain. Comparison: January 14, 2017. Portable chest again demonstrates normal heart, lungs, and bony thorax.
== END 2018-08-23 00:50 | disposition home or self-care (01) ==
LOC: ED 22:24
DX: K80.50 Calculus of bile duct without cholangitis or cholecystitis without obstruction (principal); R10.13 Epigastric pain; M54.6 Pain in thoracic spine; Z79.899 Other long term (current) drug therapy
CPT/HCPCS: 36000; 36415; 71045; 80053; 81025; 82150; 83690; 85025; 93005; 96360; 96374; 96375; 96376; 99284; J2270; J2550; A9270-GY